=== PATIENT | male | born 1970 | race Caucasian/White ===

== ENCOUNTER 2017-01-29 09:03 | Inpatient (IN) | payer OTHER ==
[2017-01-29 09:14] VITALS: BMI 35.9
--- NOTE | 2017-01-29 10:00 | HP ---
CIWA Score - CIWA Score Nausea/Vomitin-Mild Nausea/No Vomiting Muscle Tremors: 4-Moderate,w/Arms Extend Anxiety: 4-Mod. Anxious/Guarded Agitation: 1-Slight > Activity Paroxysmal Sweats: No Perspiration Orientation: 0-Oriented Tacttile Disturbances: 1-Very Mild Itch/Numbness Auditory Disturbances: 1-Very Mild Visual Disturbances: 1-Very Mild Sensitivity Headache: 2-Mild CIWA-Ar Total Score: 15 Admission ROS S - HPI Chief Complaint: I had no choice - I was sent here by Allergies/Adverse Reactions: Allergies Allergy/AdvReac Type Severity Reaction Status Date / Time latex Allergy Mild Rash Verified 01/29/17 10:11 History of Present Illness: 46 yo gentleman here for detox from alcohol - previously in detox and rehab, history of black outs, no seizures. States he is a graduate of [employer], worked and earned alot of money but drinking became out of control 'that's why they call it a disease'. He is sent here today from [facility] where he was brought by police because of intoxication. Exam Limitations: Clinical Condition - Ebola screening Have you traveled outside of the country in the last 21 days: No Have you had contact with anyone from an Ebola affected area: No Have you been sick,other than usual withdrawal symptoms: No Do you have a fever: No - Review of Systems Constitutional: Loss of Appetite, Malaise, Changes in sleep, Weakness EENT: reports: Blurred Vision Respiratory: reports: No Symptoms reported Cardiac: reports: No Symptoms Reported GI: reports: Nausea, Poor Appetite : reports: Frequency Musculoskeletal: reports: No Symptoms Reported Integumentary: reports: Rash (facial ("I need to wash my face"), left arm ("I pick at it") Neuro: reports: Headache Endocrine: reports: No Symptoms Reported Hematology: reports: No Symptoms Reported Psychiatric: reports: Judgement Intact, Mood/Affect Appropiate, Orientated x3, Anxious Other Systems: Reviewed and Negative Patient History - Patient Medical History Hx Anemia: Yes Hx Asthma: No Hx Chronic Obstructive Pulmonary Disease (COPD): No Hx Cancer: No Hx Cardiac Disorders: No Hx Hypertension: No Hx Hypercholesterolemia: No Hx Pacemaker: No HX Cerebrovascular Accident: No Hx Seizures: No Hx Dementia: No Hx Diabetes: No Hx Gastrointestinal Disorders: No Hx Liver Disease: Yes (early cirrhosis) Hx Genitourinary Disorders: No Hx Sexually Transmitted Disorders: No Hx Renal Disease (ESRD): No Hx Thyroid Disease: No Hx Hepatitis C: Yes (ab + viral load negative) Hx Depression: Yes (? anxiety ) Hx Suicide Attempt: No Hx Bipolar Disorder: No Hx Schizophrenia: No - Patient Surgical History Past Surgical History: Yes Hx Neurologic Surgery: No Hx Cataract Extraction: No Hx Cardiac Surgery: No Hx Lung Surgery: No Hx Breast Surgery: No Hx Breast Biopsy: No Hx Abdominal Surgery: No Hx Appendectomy: No Hx Cholecystectomy: Yes Hx Genitourinary Surgery: No Hx Section: No Hx Orthopedic Surgery: No Hx Hysterectomy: No - PPD History Previous Implant?: Yes Documented Results: Negative w/o proof PPD to be Administered?: Yes - Reproductive History Patient is a Female of Child Bearing Age (11 -55 yrs old): No (male) - Smoking Cessation Smoking history: Never smoked Have you smoked in the past 12 months: No Initiated information on smoking cessation: No - Substance & Tx. History Hx Alcohol Use: Yes Hx Substance Use: No Substance Use Type: Alcohol Hx Substance Use Treatment: Yes (detox, rehab) - Substances Abused Alcohol Route: Oral Frequency: Daily Amount used: one case 24 oz beer Age of first use: 15 Date of Last Use: 01/28/17 Family Disease History - Family Disease History Family Disease History: Diabetes: Mother (living, etoh), Heart Disease: Mother, Other: Father ( MVA, etoh, pancreatitis), Mother, Brother, Sister Admission Physical Exam BHS - Vital Signs Vital Signs: Vital Signs - 24 hr 01/29/17 09:06 Temperature 98.7 F Pulse Rate 83 Respiratory 18 Rate Blood Pressure 160/90 - Physical General Appearance: Yes: Nourished, Appropriately Dressed, Disheveled, Mild Distress, Obese, Anxious HEENTM: Yes: Hearing grossly Normal, Normal ENT Inspection, Normocephalic, Normal Voice, Pharynx Normal Respiratory: Yes: Normal Breath Sounds, No Respiratory Distress Neck: Yes: No masses,lesions,Nodules, Supple Breast: Yes: Breast Exam Deferred, Other (gynecomastia) Cardiology: Yes: Regular Rhythm, Regular Rate Abdominal: Yes: Soft, Protuberent Genitourinary: Yes: Frequency Back: Yes: Decreased Range of Motion Musculoskeletal: Yes: full range of Motion, Gait Steady Extremities: Yes: Normal Inspection, Normal Range of Motion, Non-Tender Neurological: Yes: Fully Oriented, Alert, Normal Mood/Affect, Normal Response Integumentary: Yes: Dry, Rash (facial rash - crusty, erythematous over nasolabial folds; left arm rash - states ? allergy to latex tourniquet) Lymphatic: Yes: Within Normal Limits - Diagnostic (1) EtOH dependence Current Visit: Yes Status: Acute Qualifiers: Substance use status: uncomplicated Qualified Code(s): F10.20 - Alcohol dependence, uncomplicated (2) Seborrhea Current Visit: Yes Status: Chronic Comment: facial (3) Allergic reaction Current Visit: Yes Status: Chronic Qualifiers: Encounter type: initial encounter Qualified Code(s): T78.40XA - Allergy, unspecified, initial encounter Comment: left arm, states from tourniquet two weeks ago when in [place] ED Cleared for Admission [facility] - Detox or Rehab [facility] Level of Care: Medically Managed Detox Regimen/Protocol: Librium [facility] Breath Alcohol Content Breath Alcohol Content: 0.171 Urine Drug Screen - Results Drug Screen Negative: No Urine Drug Screen Results: BZO-Benzodiazepines
[2017-01-29] MEDS ORDERED: guaiFENesin/D-METHORPHAN HB 10 ML UNIT-DOSE CUPS PO PRN (10:23)
[2017-01-29] MEDS ORDERED: MAG HYDROX/AL HYDROX/SIMETH 30 ML UNIT-DOSE CUP PO PRN (10:23)
[2017-01-29] MEDS ORDERED: LOPERAMIDE HCL 2 MG CAPSULE PO PRN (10:23)
[2017-01-29] MEDS ORDERED: ACETAMINOPHEN 325 MG TABLET (FP) PO PRN (10:23)
[2017-01-29] MEDS ORDERED: MENTHOL/PHENOL 1 EACH UD MM PRN (10:23)
[2017-01-29] MEDS ORDERED: IBUPROFEN 400 MG TABLET (FP) PO PRN (10:23)
[2017-01-29] MEDS ORDERED: MAGNESIUM HYDROX 2400MG/30ML ORAL SUSPENSION 30 ML CUP PO PRN (10:23)
[2017-01-29] MEDS ORDERED: MAGNESIUM CITRATE 300 ML BOTTLE PO PRN (10:23)
[2017-01-29] MEDS ORDERED: hydrOXYzine PAMOATE 50 MG CAPSULE (FP) PO PRN (10:23)
[2017-01-29] MEDS ORDERED: P-EPHED 60MG/TRIPROLIDI 2.5MG TABLET PO PRN (10:23)
[2017-01-29] MEDS ORDERED: HYDROCORTISONE 1% TOPICAL OINT 30 GM TUBE TP PRN (10:25)
[2017-01-29] MEDS ORDERED: chlordiazePOXIDE HCL 25 MG CAPSULE PO PRN (10:34)
[2017-01-29] MEDS ORDERED: chlordiazePOXIDE HCL 25 MG CAPSULE PO ONE (10:45)
[2017-01-29] MEDS: GABAPENTIN 300 MG CAPSULE (FP) PO SCH ×2 (11:43→22:46)
[2017-01-29] MEDS: KETOCONAZOLE 2% CREAM - 60GM TUBE TP SCH (15:11)
[2017-01-29] MEDS: chlordiazePOXIDE HCL 25 MG CAPSULE PO SCH ×2 (17:21→22:47)
--- NOTE | 2017-01-29 17:49 | CONSULT ---
[facility] Psychiatric Consult - Data Date of interview: 01/29/17 Admission source: [facility] Identifying data: First admission to [facility] for this 46 y/o male seeking detox treatment on for alcohol dependence.Patient is highly educated (graduate from [employer]),single without children,homeless,unemployed and deprived of any source of income. Substance Abuse History: Confirmed by the patient in this interview. - Smoking Cessation. Smoking history: Never smoked. Have you smoked in the past 12 months: No. Initiated information on smoking cessation: No. - Substance & Tx. History. Hx Alcohol Use: Yes. Hx Substance Use: No. Substance Use Type: Alcohol. Hx Substance Use Treatment: Yes (detox, rehab). - Substances Abused. Alcohol. Route: Oral. Frequency: Daily. Amount used: one case 24 oz beer. Age of first use: 15. Date of Last Use: 01/28/17 Medical History: Anemia,hepatitis and cirrhosis of the liver. Psychiatric History: Patient denies history of psychiatric hospitalizations.He indicates,however,that he gets psychiatric outpatient services at [facility] in [place].Diagnosed with Anxiety Disorder.Maintained on risperdal 2 mg/hs + gabapentin 600 mg po tid.No reported history of suicide attempts. Physical/Sexual Abuse/Trauma History: Patient denies history of abuse. Additional Comment: Urine Drug Screen Results: BZO-Benzodiazepines.Noted. Mental Status Exam - Mental Status Exam Alert and Oriented to: Time, Place, Person Cognitive Function: Good Patient Appearance: Unkempt, Disheveled (obese) Mood: Nervous, Apprehensive Affect: Mood Congruent Patient Behavior: Fatigued, Appropriate, Cooperative Speech Pattern: Clear Voice Loudness: Normal Thought Process: Intact, Goal Oriented Thought Disorder: Not Present Hallucinations: Denies Suicidal Ideation: Denies Homicidal Ideation: Denies Insight/Judgement: Poor Sleep: Poorly, Difficulty falling asleep Appetite: Good Muscle strength/Tone: Normal Gait/Station: Normal Psychiatric Findings - Problem List ([place] 1, 2,3) (1) EtOH dependence Current Visit: Yes Status: Acute Qualifiers: Substance use status: uncomplicated Qualified Code(s): F10.20 - Alcohol dependence, uncomplicated (2) Alcohol-induced mood disorder Current Visit: Yes Status: Acute (3) Seborrhea Current Visit: Yes Status: Chronic Comment: facial (4) Insomnia Current Visit: Yes Status: Acute - Initial Treatment Plan Initial Treatment Plan: Psychoeducation.Detoxification.Meications : gabapentin 600 mg po tid + ambien 10 mg po hs prn.Side effects/benefits discussed with patient.He is in agreement with this careplan.Pharmacy claims are reviewed : no evidence of risperdal.Observation.
[2017-01-29 18:49] LABS: URINE APPEARANCE CLEAR; URINE BILIRUBIN NEGATIVE (NEGATIVE); URINE BLOOD NEGATIVE (NEGATIVE); URINE COLOR YELLOW; URINE GLUCOSE (UA) NEGATIVE (NEGATIVE); URINE KETONE NEGATIVE (NEGATIVE); URINE LEUK ESTERASE NEGATIVE (NEGATIVE); URINE NITRITE NEGATIVE (NEGATIVE); URINE PROTEIN NEGATIVE (NEGATIVE); URINE UROBILINOGEN NEGATIVE mg/dL (0.2-1.0)
[2017-01-29] MEDS ORDERED: diphenhydrAMINE HCL 50 MG CAPSULE PO PRN (22:00)
[2017-01-29] MEDS: THIAMINE HCL 100 MG TABLET (FP) PO SCH (22:46)
[2017-01-30] MEDS: GABAPENTIN 300 MG CAPSULE (FP) PO SCH ×3 (02:30→22:43)
[2017-01-30] MEDS: chlordiazePOXIDE HCL 25 MG CAPSULE PO SCH ×4 (05:57→22:44)
[2017-01-30] MEDS ORDERED: GABAPENTIN 300 MG CAPSULE (FP) PO ONE (07:17)
--- NOTE | 2017-01-30 07:33 | PN ---
[place] Progress Note Note: patient is taking neurontin 600mgs po tid seen by dr Man psychiatrist, neurontin 600 mg po given now, please inform psyhiatrist to continue order for neurontin 600 mg po tid
[2017-01-30 10:01] LABS: MCH 30.2 pg (25.7-33.7); MCHC 33.9 g/dl (32.0-35.9); MEAN CELL VOLUME 89.3 fl (80-96); MEAN PLT VOLUME 8.5 fl (7.5-11.1); PLATELET COUNT 117 K/MM3 (134-434); RDW 17.8 % (11.9-15.9); WHITE BLOOD COUNT 3.1 K/mm3 (4.0-10.0)
[2017-01-30 10:08] LABS: ALBUMIN 3.1 g/dl (3.4-5.0); ANION GAP 8 (8-16); BILIRUBIN,TOTAL 1.4 mg/dL (0.2-1.0); CALCIUM 7.7 mg/dL (8.5-10.1); CO2 26 mmol/L (21-32); CREATININE 0.6 mg/dL (0.7-1.3); GLUCOSE,RANDOM 140 mg/dL (74-106); SGOT/AST 68 U/L (15-37); SGPT/ALT 52 U/L (12-78); TOT PROT 7.1 g/dl (6.4-8.2)
[2017-01-30 10:09] LABS: ALK PHOS 169 U/L (45-117)
[2017-01-30] MEDS: PRENATAL VITAMINS W/ FOLIC ACID TABLET (FP) PO SCH (10:33)
[2017-01-30] MEDS: KETOCONAZOLE 2% CREAM - 60GM TUBE TP SCH (10:34)
[2017-01-30] MEDS ORDERED: GABAPENTIN 300 MG CAPSULE (FP) PO SCH (14:00)
[2017-01-30] MEDS ORDERED: TRIMETHOBENZAMIDE HCL 200MG/2ML INJ IM ONE (14:32)
[2017-01-30] MEDS ORDERED: TRIMETHOBENZAMIDE HCL 200MG/2ML INJ IM PRN (14:33)
[2017-01-30] MEDS ORDERED: ONDANSETRON *ODT* 4 MG TABLET SL ONE (14:34)
[2017-01-30] MEDS ORDERED: IBUPROFEN 400 MG TABLET (FP) PO PRN (14:38)
[2017-01-30] MEDS ORDERED: IBUPROFEN 400 MG TABLET (FP) PO ONE (14:39)
--- NOTE | 2017-01-30 15:00 | PN ---
[facility] CIWA - CIWA Score Nausea/Vomitin Muscle Tremors: 4-Moderate,w/Arms Extend Anxiety: 4-Mod. Anxious/Guarded Agitation: 4-Moderately Restless Paroxysmal Sweats: No Perspiration Orientation: 0-Oriented Tacttile Disturbances: 1-Very Mild Itch/Numbness Auditory Disturbances: 0-None Visual Disturbances: 0-None Headache: 1-Very Mild CIWA-Ar Total Score: 19 S Progress Note (SOAP) Subjective: Tremor, chills, sweating, headache, interrupted sleep, N/V (vomited x 2 this morning after breakfast (refused to have regular diet changed to clear liquids despite insurance underwriter's recommendation), abdominal pain (6-7/10 pain scale) started last night with same pain scale and persistent, patient reports h/o pancreatitis and was admitted to [facility] 3 months ago for it in which he received morphine IV and IVF; patient reports h/o leukopenia and anemia of chronic disease Objective: 01/30/17 14:57 Last Vital Signs Temp Pulse Resp BP Pulse Ox 96.7 F L 68 18 121/72 01/30/17 14:19 01/30/17 14:19 01/30/17 14:19 01/30/17 14:19 PE: Resp: lungs ctab/l, no added breath sounds CV: rrr, s1s2+ Abd: softly obese, + epigastric tenderness on palpation (mild), nd, +bs x 4 quadrants Skin: warm to touch, turgor good Laboratory Tests 01/29/17 01/30/17 01/30/17 13:26 06:05 06:05 WBC 3.1 L RBC 3.35 L Hgb 10.1 L Hct 29.9 L MCV 89.3 MCH 30.2 MCHC 33.9 RDW 17.8 H Plt Count 117 L MPV 8.5 Sodium 144 Potassium 3.8 Chloride 110 H Carbon Dioxide 26 Anion Gap 8 BUN 7 Creatinine 0.6 L Creat Clearance w eGFR > 60 Random Glucose 140 H Calcium 7.7 L Total Bilirubin 1.4 H AST 68 H ALT 52 Alkaline Phosphatase 169 H Total Protein 7.1 Albumin 3.1 L Urine Color Yellow Urine Appearance Clear Urine pH 5.0 Ur Specific [place] 1.015 Urine Protein Negative Urine Glucose (UA) Negative Urine Ketones Negative Urine Blood Negative Urine Nitrite Negative Urine Bilirubin Negative Urine Urobilinogen Negative Ur Leukocyte Esterase Negative RPR Titer 01/30/17 06:05 WBC RBC Hgb Hct MCV MCH MCHC RDW Plt Count MPV Sodium Potassium Chloride Carbon Dioxide Anion Gap BUN Creatinine Creat Clearance w eGFR Random Glucose Calcium Total Bilirubin AST ALT Alkaline Phosphatase Total Protein Albumin Urine Color Urine Appearance Urine pH Ur Specific [place] Urine Protein Urine Glucose (UA) Urine Ketones Urine Blood Urine Nitrite Urine Bilirubin Urine Urobilinogen Ur Leukocyte Esterase RPR Titer Nonreactive Labs noted Assessment: 01/30/17 15:00 Withdrawal symptoms N/V Plan: Continue detox N/V/Abdominal pain: tigan 200mg IM x 1 then q8hr prn, zofran 4mg SL x 1 then q8hr prn, gingerale 1 can PO bid, encouraged to drink more water (water pitcher ordered), recommends clear liquid diet but patient refused; send amylase, lipase , cbc, bmp in AM. Motrin increased to 800mg PO q8hr prn severe pain (first dose now). Consider transferring to ER if significant elevation in amylase/lipase and worsening of abdominal pain and vomiting to rule out acute pancreatitis.
[2017-01-30] MEDS ORDERED: ONDANSETRON *ODT* 4 MG TABLET SL PRN (22:00)
--- NOTE | 2017-01-30 22:19 | EKG ---
Test Reason : Blood Pressure : / mmHG Vent. Rate : 085 BPM Atrial Rate : 085 BPM P-R Int : 170 ms QRS Dur : 114 ms QT Int : 392 ms P-R-T Axes : 053 -02 047 degrees QTc Int : 466 ms NORMAL SINUS RHYTHM NON-SPECIFIC INTRA-VENTRICULAR CONDUCTION DELAY NO PREVIOUS ECGS AVAILABLE Confirmed by DEONDRE DIXON, TENZIN ([id number]) on 01/30/2017 10:18:49 PM Referred By: Confirmed By:TENZIN MENDOSA MD
[2017-01-30] MEDS: THIAMINE HCL 100 MG TABLET (FP) PO SCH (22:43)
[2017-01-31] MEDS: chlordiazePOXIDE HCL 25 MG CAPSULE PO SCH ×2 (05:42→11:09)
[2017-01-31] MEDS: GABAPENTIN 300 MG CAPSULE (FP) PO SCH ×2 (05:42→14:30)
--- NOTE | 2017-01-31 09:16 | PN ---
S CIWA - CIWA Score Nausea/Vomitin Muscle Tremors: 4-Moderate,w/Arms Extend Anxiety: 4-Mod. Anxious/Guarded Agitation: 4-Moderately Restless Paroxysmal Sweats: 3 Orientation: 0-Oriented Tacttile Disturbances: 1-Very Mild Itch/Numbness Auditory Disturbances: 0-None Visual Disturbances: 0-None Headache: 1-Very Mild CIWA-Ar Total Score: 22 BHS Progress Note (SOAP) Subjective: nausea, sweats, interrupted sleep, axiety, tremors, central abdo pain which feels like pancreatitis whichhe has had in the past, unable to take tylenol all other medications reportedly ineffective Objective: 01/31/17 09:14 Vital Signs - 24 hr 01/30/17 01/30/17 01/30/17 09:33 14:19 18:34 Temperature 97.0 F L 96.7 F L 97.0 F L Pulse Rate 84 68 66 Respiratory 18 18 18 Rate Blood Pressure 138/74 121/72 108/61 01/30/17 01/31/17 01/31/17 22:25 00:30 04:29 Temperature 98.4 F Pulse Rate 81 Respiratory 16 18 18 Rate Blood Pressure 106/61 01/31/17 06:16 Temperature 96.4 F L Pulse Rate 64 Respiratory 16 Rate Blood Pressure 116/73 Laboratory Tests 01/29/17 01/30/17 01/30/17 13:26 06:05 06:05 WBC 3.1 L RBC 3.35 L Hgb 10.1 L Hct 29.9 L MCV 89.3 MCH 30.2 MCHC 33.9 RDW 17.8 H Plt Count 117 L MPV 8.5 Sodium 144 Potassium 3.8 Chloride 110 H Carbon Dioxide 26 Anion Gap 8 BUN 7 Creatinine 0.6 L Creat Clearance w eGFR > 60 Random Glucose 140 H Calcium 7.7 L Total Bilirubin 1.4 H AST 68 H ALT 52 Alkaline Phosphatase 169 H Total Protein 7.1 Albumin 3.1 L Urine Color Yellow Urine Appearance Clear Urine pH 5.0 Ur Specific [place] 1.015 Urine Protein Negative Urine Glucose (UA) Negative Urine Ketones Negative Urine Blood Negative Urine Nitrite Negative Urine Bilirubin Negative Urine Urobilinogen Negative Ur Leukocyte Esterase Negative RPR Titer 01/30/17 06:05 WBC RBC Hgb Hct MCV MCH MCHC RDW Plt Count MPV Sodium Potassium Chloride Carbon Dioxide Anion Gap BUN Creatinine Creat Clearance w eGFR Random Glucose Calcium Total Bilirubin AST ALT Alkaline Phosphatase Total Protein Albumin Urine Color Urine Appearance Urine pH Ur Specific [place] Urine Protein Urine Glucose (UA) Urine Ketones Urine Blood Urine Nitrite Urine Bilirubin Urine Urobilinogen Ur Leukocyte Esterase RPR Titer Nonreactive pancytopenia, hypoalbuminemia, elevated lfts, elevated glucose Assessment: 01/31/17 09:14 withdrawal sx, abdo pain, malnutiriton/liverdisease noted, elevated glucose Plan: cont detox, libirum prns , order amylase/lipase to r/o pancreatitis, repeat labs , fluids, d/c meeta mahamed, diabetic dies ordered.
[2017-01-31 10:05] LABS: MCH 30.1 pg (25.7-33.7); MCHC 33.3 g/dl (32.0-35.9); MEAN CELL VOLUME 90.4 fl (80-96); MEAN PLT VOLUME 7.7 fl (7.5-11.1); PLATELET COUNT 70 K/MM3 (134-434); RDW 17.7 % (11.9-15.9)
[2017-01-31 10:17] LABS: AMYLASE 69 U/L (25-115); ANION GAP 6 (8-16); CALCIUM 8.4 mg/dL (8.5-10.1); CO2 28 mmol/L (21-32); CREATININE 0.6 mg/dL (0.7-1.3); GLUCOSE,RANDOM 114 mg/dL (74-106)
[2017-01-31 10:20] LABS: WHITE BLOOD COUNT 1.5 K/mm3 (4.0-10.0)
--- NOTE | 2017-01-31 10:30 | PN ---
S Progress Note Note: lipase elevated, abdo pain worse, pancytopenia, WBC 1.5 will send to ED for evaluation and clearance prior to completing discharge.. Ed notified.
[2017-01-31 10:44] LABS: PLATELET ESTIMATE DECREASED (NORMAL); TOTAL CELLS COUNTED 100
[2017-01-31] MEDS: PRENATAL VITAMINS W/ FOLIC ACID TABLET (FP) PO SCH (11:09)
[2017-01-31] MEDS: KETOCONAZOLE 2% CREAM - 60GM TUBE TP SCH (11:11)
[2017-01-31 11:52] VITALS: BP 104/58; PULSE 58; TEMP 98.3
[2017-01-31] MEDS ORDERED: chlordiazePOXIDE 5 MG CAPSULE PO SCH (17:00)
[2017-02-01] MEDS ORDERED: chlordiazePOXIDE HCL 10 MG CAPSULE PO SCH (17:00)
== END 2017-01-31 18:53 | disposition short-term general hospital (02) | DRG 775 ==
LOC: YASAS 09:03 → Y3N 10:28
PROVIDERS: ADMIT Internal Medicine Addiction Medicine; ATTEND Internal Medicine Addiction Medicine
PROC: HZ2ZZZZ Detoxification Services for Substance Abuse Treatment (ICD-10-PCS; principal; 2017-01-29)
DX: F10.230 Alcohol dependence with withdrawal, uncomplicated (principal); F10.24 Alcohol dependence with alcohol-induced mood disorder; L21.9 Seborrheic dermatitis, unspecified; G47.00 Insomnia, unspecified; E46 Unspecified protein-calorie malnutrition; Z68.35 Body mass index [BMI] 35.0-35.9, adult; R10.9 Unspecified abdominal pain; D61.818 Other pancytopenia; R94.5 Abnormal results of liver function studies; E88.09 Other disorders of plasma-protein metabolism, not elsewhere classified; R73.9 Hyperglycemia, unspecified; E66.9 Obesity, unspecified; K74.60 Unspecified cirrhosis of liver; D64.9 Anemia, unspecified; B18.2 Chronic viral hepatitis C; T78.40XD Allergy, unspecified, subsequent encounter; X58.XXXD Exposure to other specified factors, subsequent encounter
CPT/HCPCS: 36415; 80048; 80053; 81003; 82150; 83690; 85025; 85027; 86593; 93005; 93010

== ENCOUNTER 2017-01-31 12:07 | Inpatient (IN) | payer OTHER ==
[2017-01-31 12:16] VITALS: BMI 37.3
--- NOTE | 2017-01-31 12:59 | PDOC ---
Attending Attestation - Resident Resident Name: ElizabethAlexandre - ED Attending Attestation I have performed the following: I have examined & evaluated the patient, The case was reviewed & discussed with the resident, I agree w/resident's findings & plan, Exceptions are as noted - HPI HPI: 01/31/17 16:34 46 M with h/o ETOH abuse, recurrent pancreatitis presents to ER with epigastric pain x 1 day. Pt was detoxing at [facility] for ETOH when he developed severe epigastric pain and vomiting. Pt states that the pain felt the same as his previous episodes of pancreatitis. He denies F/C. Denies diarrhea/constipation. Pt reports multiple episodes of nonbloody vomitus. Pt last drank 3 days ago, was being treated for withdrawal at [facility]. Denies any sensation of withdrawal at this time. - Physicial Exam PE: 01/31/17 16:36 "GENERAL: Awake, alert, and fully oriented, in no acute distress HEAD: No signs of trauma EYES: PERRLA, EOMI, sclera anicteric, conjunctiva clear ENT: Auricles normal inspection, hearing grossly normal, nares patent, oropharynx clear without exudates. Moist mucosa NECK: Normal ROM, supple, no lymphadenopathy, JVD, or masses LUNGS: Breath sounds equal, clear to auscultation bilaterally. No wheezes, and no crackles HEART: Regular rate and rhythm, normal S1 and S2, no murmurs, rubs or gallops ABDOMEN: Soft, + epigastric TTP, normoactive bowel sounds. No guarding, no rebound. No masses EXTREMITIES: Normal range of motion, no edema. No clubbing or cyanosis. No cords, erythema, or tenderness NEUROLOGICAL: Cranial nerves II through XII grossly intact. Normal speech, normal gait SKIN: Warm, Dry, normal turgor, no rashes or lesions noted. " - Medical Decision Making 01/31/17 16:37 46 M with epigastric pain + vomiting, concerning for acute pancreatitis vs gastritis. - Labs, lipase - IVF, analgesia 01/31/17 16:37 CBC,CMP WBC 2.2 K/mm3 (4.0-10.0) L D 01/31/17 13:35 RBC 3.28 M/mm3 (4.00-5.60) L 01/31/17 13:35 Hgb 10.0 GM/dL (11.7-16.9) L 01/31/17 13:35 Hct 29.4 % (35.4-49) L 01/31/17 13:35 MCV 89.7 fl (80-96) 01/31/17 13:35 MCH 30.4 pg (25.7-33.7) 01/31/17 13:35 MCHC 33.9 g/dl (32.0-35.9) 01/31/17 13:35 RDW 17.7 % (11.9-15.9) H 01/31/17 13:35 Plt Count 79 K/MM3 (134-434) L 01/31/17 13:35 MPV 7.0 fl (7.5-11.1) L 01/31/17 13:35 Neutrophils % 56.7 % (42.8-82.8) 01/31/17 13:35 Lymphocytes % 25.9 % (8-40) 01/31/17 13:35 Monocytes % 12.0 % (3.8-10.2) H 01/31/17 13:35 Eosinophils % 4.0 % (0-4.5) 01/31/17 13:35 Basophils % 1.4 % (0-2.0) 01/31/17 13:35 Sodium 140 mmol/L (136-145) 01/31/17 13:35 Potassium 4.3 mmol/L (3.5-5.1) 01/31/17 13:35 Chloride 105 mmol/L (98-107) 01/31/17 13:35 Carbon Dioxide 30 mmol/L (21-32) 01/31/17 13:35 Anion Gap 5 (8-16) L 01/31/17 13:35 BUN 13 mg/dL (7-18) 01/31/17 13:35 Creatinine 0.5 mg/dL (0.7-1.3) L 01/31/17 13:35 Creat Clearance w eGFR > 60 (>60) 01/31/17 13:35 Random Glucose 90 mg/dL (74-106) D 01/31/17 13:35 Calcium 8.8 mg/dL (8.5-10.1) 01/31/17 13:35 Total Bilirubin 0.8 mg/dL (0.2-1.0) D 01/31/17 13:35 AST 55 U/L (15-37) H 01/31/17 13:35 ALT 39 U/L (12-78) D 01/31/17 13:35 Alkaline Phosphatase 161 U/L (45-117) H 01/31/17 13:35 LD Total 221 U/L (87-241) 01/31/17 13:14 Total Protein 7.0 g/dl (6.4-8.2) 01/31/17 13:35 Albumin 3.0 g/dl (3.4-5.0) L 01/31/17 13:35 Lipase 576 U/L (73-393) H 01/31/17 13:14 Labs notable for lipase in 500s. Pt with likely acute pancreatitis. Will keep NPO and admit to hospitalist.
[2017-01-31] MEDS ORDERED: ONDANSETRON 4 MG/2 ML VIAL IVPUSH ONE (13:05)
[2017-01-31] MEDS ORDERED: morphine CARPU-JECT 4 MG/1 ML DISP.SYRIN IVPUSH ONE ×2 (13:05→15:40)
[2017-01-31] MEDS ORDERED: SODIUM CHLORIDE 1,000 ML IV STA (13:05)
--- NOTE | 2017-01-31 13:06 | PDOC ---
History of Present Illness - General Chief Complaint: Pain, Acute Stated Complaint: ABD PAIN Time Seen by Provider: 01/31/17 12:11 - History of Present Illness Initial Comments: 01/31/17 16:33 Patient is a 46 year old male with a history of pancreatitis, alcoholism who presents with abdominal pain. The patient reports a 2 days history of epigastric abdominal pain. He presents from [facility] for which he was admitted 2 days ago for treatment of alcoholism. The patient reports worsening sharp 8/10 epigastric abdominal pain with radiation to his back similar to his previous presentation of pancreatitis. He reports that he had a cholecystectomy due to pancreatitis in the past as well. He had lab work done at [facility] today demonstrating concerns for pancreatitis prompting his presentation to the ER today. He does endorse some nausea and 2 episodes of vomiting. He denies fevers, chills, SOB, chest pain, or changes with bowel movements or urination. Past History - Past Medical History Allergies/Adverse Reactions: Allergies Allergy/AdvReac Type Severity Reaction Status Date / Time latex Allergy Mild Rash Verified 01/29/17 10:11 Home Medications: Ambulatory Orders Gabapentin [Neurontin] 600 mg PO TID 01/31/17 Anemia: Yes Asthma: No Cancer: No Cardiac Disorders: No CVA: No COPD: No Dementia: No Diabetes: No GI Disorders: No Disorders: No HTN: No Hypercholesterolemia: No Kidney Stones: No Liver Disease: Yes (early cirrhosis) Suicide Attempt (Hx): No Seizures: No Thyroid Disease: No - Surgical History Abdominal Surgery: No Appendectomy: No Cardiac Surgery: No Cholecystectomy: Yes Lung Surgery: No Neurologic Surgery: No Orthopedic Surgery: No - Reproductive History Testicular Surgery: No - Psycho/Social/Smoking Cessation Hx Anxiety: No Suicidal Ideation: No Smoking History: Never smoked Have you smoked in the past 12 months: No Information on smoking cessation initiated: No Hx Alcohol Use: Yes Drug/Substance Use Hx: No Substance Use Type: Alcohol Hx Substance Use Treatment: Yes (detox, rehab) Review of Systems - Review of Systems Constitutional: No: Chills, Fever Respiratory: No: Cough, Shortness of Breath Cardiac (ROS): No: Chest Pain, Lightheadedness, Palpitations ABD/GI: Yes: Nausea, Vomiting. No: Constipated, Diarrhea, Tarry Stools : No: Burning, Dysuria Integumentary: No: Rash Neurological: No: Headache, Numbness, Tingling, Weakness *Physical Exam - Vital Signs Last Vital Signs Temp Pulse Resp BP Pulse Ox 98.2 F 65 20 111/59 100 01/31/17 12:09 01/31/17 12:09 01/31/17 12:09 01/31/17 12:09 01/31/17 12:09 - Physical Exam Comments: 01/31/17 16:57 General Appearance: Nourished. No Apparent Distress HEENT: No Pharyngeal Erythema, Tonsillar Exudate, Tonsillar Erythema Respiratory/Chest: Lungs Clear, Normal Breath Sounds. No Crackles, Rales, Rhonchi, Wheezing Cardiovascular: Regular Rhythm, Regular Rate. No Murmur, Gallop/S3, Gallop/S4 Gastrointestinal/Abdominal: Normal Bowel Sounds, Soft, Mild epigastric tenderness to palpation. No Guarding, Rebound Extremity: Normal Capillary Refill Integumentary: Normal Color, Dry, Warm Neurologic: Fully Oriented, Alert, Normal Mood/Affect, Normal Response ED Treatment Course - LABORATORY CBC & Chemistry Diagram: 01/31/17 13:35 01/31/17 13:35 - RADIOLOGY Radiology Studies Ordered: Category Date Time Status CHEST PA & LAT [RAD] Stat Radiology 01/31/17 13:05 Ordered Medical Decision Making - Medical Decision Making 01/31/17 16:58 Patient is a 46 year old male with a history of pancreatitis and alcoholism who presents with abdominal pain. Differential includes but is not limited to: Pancreatitis, Choledocolethiasis, Peptic ulcer, metabolic derangement. Given the patient's epigastric pain with radiation to his back as well as previous presentations due to pancreatitis, it is likely his pain is due to a recurrence of the patient's pancreatitis. The patient had a cholecystectomy making cholecytitis unlikely and it is unlikely his symptoms are due to choledocolethiasis due to his presentation. We will obtain a cbc, cmp, lipase, chest radiograph to evaluate. 01/31/17 17:24 Lipase is positive to 526 concerning for pancreatitis. CBC, cmp and chest radiograph are unremarkable. It is likely his symptoms are due to pancreatitis. We will call for admission for pancreatitis and treat with IV fluids and morphine for pain control. We discussed the results with the patient and plan and the patient is agreeable with the plan. 01/31/17 17:31 Discussed the case with Dr. Vigil who agreed to accept the patient for admission. *DC/Admit/Observation/Transfer Diagnosis at time of Disposition: Pancreatitis Qualifiers: Chronicity: acute Pancreatitis type: alcohol induced Acute pancreatitis complication: unspecified Qualified Code(s): K85.20 - Alcohol induced acute pancreatitis without necrosis or infection - Discharge Dispostion Condition at time of disposition: Guarded Admit: Yes
[2017-01-31] MEDS ORDERED: morphine CARPU-JECT 10 MG/1 ML DISP.SYRIN ONE ×2 (13:17→15:51)
[2017-01-31] MEDS ORDERED: ONDANSETRON 4 MG/2 ML VIAL ONE (13:18)
[2017-01-31 13:41] LABS: BASOPHIL 1.4 % (0-2.0); MCH 30.4 pg (25.7-33.7); MCHC 33.9 g/dl (32.0-35.9); MEAN CELL VOLUME 89.7 fl (80-96); NEUTROPHILS 56.7 % (42.8-82.8); PLATELET COUNT 79 K/MM3 (134-434); RDW 17.7 % (11.9-15.9); WHITE BLOOD COUNT 2.2 K/mm3 (4.0-10.0)
[2017-01-31 14:01] LABS: LDH 221 U/L (87-241)
[2017-01-31 14:04] LABS: ANION GAP 5 (8-16); CALCIUM 8.8 mg/dL (8.5-10.1); CO2 30 mmol/L (21-32); CREATININE 0.5 mg/dL (0.7-1.3); GLUCOSE,RANDOM 90 mg/dL (74-106); SGOT/AST 55 U/L (15-37); SGPT/ALT 39 U/L (12-78)
[2017-01-31 14:05] LABS: ALK PHOS 161 U/L (45-117); BILIRUBIN,TOTAL 0.8 mg/dL (0.2-1.0)
--- NOTE | 2017-01-31 19:49 | HP ---
Admitting History and Physical - Primary Care Physician PCP: Olena Vigil - Admission Chief Complaint: abdominal pain History of Present Illness: 46 M with h/o ETOH abuse, recurrent pancreatitis presents to ER with epigastric pain x 1 day. Pt was detoxing at [facility] for ETOH when he developed severe epigastric pain and vomiting. Pt states that the pain felt the same as his previous episodes of pancreatitis. He denies F/C. Denies diarrhea/constipation. Pt reports multiple episodes of nonbloody vomitus. Pt last drank 3 days ago, was being treated for withdrawal at [facility]. Denies any sensation of withdrawal at this time. - - Past Medical History Gastrointestinal: Yes: Pancreatitis - Smoking History Smoking history: Never smoked Have you smoked in the past 12 months: No - Alcohol/Substance Use Hx Alcohol Use: Yes Home Medications - Allergies Allergies/Adverse Reactions: Allergies Allergy/AdvReac Type Severity Reaction Status Date / Time latex Allergy Mild Rash Verified 01/29/17 10:11 - Home Medications Home Medications: Ambulatory Orders Gabapentin [Neurontin] 600 mg PO TID 01/31/17 Family Disease History - Family Disease History Family Disease History: Diabetes: Mother (living, etoh), Heart Disease: Mother, Other: Father ( MVA, etoh, pancreatitis), Mother, Brother, Sister Review of Systems - Review of Systems Gastrointestinal: reports: Abdominal Pain, Nausea Physical Examination Vital Signs: Vital Signs Temperature 97.6 F 01/31/17 18:46 Pulse Rate 68 01/31/17 18:46 Respiratory Rate 18 01/31/17 18:46 Blood Pressure 131/76 01/31/17 18:46 O2 Sat by Pulse Oximetry (%) 100 01/31/17 12:09 Constitutional: Yes: Calm HENT: Yes: Atraumatic Neck: Yes: Supple Cardiovascular: Yes: Regular Rate and Rhythm Respiratory: Yes: CTA Bilaterally Gastrointestinal: Yes: Normal Bowel Sounds, Tenderness (epigastric, mild) Extremities: Yes: WNL Neurological: Yes: Alert, Oriented Imaging - Results X-ray: Report Reviewed Problem List - Problems (1) EtOH dependence Assessment/Plan: pt was at [facility] will call dr marylu carlson Code(s): F10.20 - ALCOHOL DEPENDENCE, UNCOMPLICATED Qualifiers: (2) Pancreatitis Assessment/Plan: prn pain meds clear liquid diet fu labs in am gi consult ct abd and pelvis if needed Code(s): K85.90 - ACUTE PANCREATITIS WITHOUT NECROSIS OR INFECTION, UNSP Qualifiers: Chronicity: acute Pancreatitis type: alcohol induced Acute pancreatitis complication: unspecified Qualified Code(s): K85.20 - Alcohol induced acute pancreatitis without necrosis or infection Assessment/Plan Laboratory Tests 01/31/17 01/31/17 01/31/17 13:14 13:35 13:35 WBC 2.2 L D RBC 3.28 L Hgb 10.0 L Hct 29.4 L MCV 89.7 MCH 30.4 MCHC 33.9 RDW 17.7 H Plt Count 79 L MPV 7.0 L Neutrophils % 56.7 Lymphocytes % 25.9 Monocytes % 12.0 H Eosinophils % 4.0 Basophils % 1.4 Sodium 140 Potassium 4.3 Chloride 105 Carbon Dioxide 30 Anion Gap 5 L BUN 13 Creatinine 0.5 L Creat Clearance w eGFR > 60 Random Glucose 90 D Calcium 8.8 Total Bilirubin 0.8 D AST 55 H ALT 39 D Alkaline Phosphatase 161 H LD Total 221 Total Protein 7.0 Albumin 3.0 L Lipase 576 H
[2017-01-31] MEDS ORDERED: ONDANSETRON 4 MG/2 ML VIAL IVPB PRN (19:58)
[2017-01-31] MEDS: HYDROmorphone HCL CARPU-JECT 1 MG/1 ML DISP.SYRIN IVPB PRN (21:14)
[2017-01-31] MEDS ORDERED: chlordiazePOXIDE HCL 25 MG CAPSULE PO PRN (22:49)
[2017-01-31] MEDS: chlordiazePOXIDE 5 MG CAPSULE PO SCH (23:11)
[2017-02-01] MEDS: HYDROmorphone HCL CARPU-JECT 1 MG/1 ML DISP.SYRIN IVPB PRN (04:00)
[2017-02-01] MEDS: chlordiazePOXIDE 5 MG CAPSULE PO SCH ×2 (04:57→11:42)
[2017-02-01 09:03] LABS: AMYLASE 154 U/L (25-115)
--- NOTE | 2017-02-01 13:29 | CON.GI ---
Consult Consult Specialty:: GI Referred by:: Dr. Vigil Reason for Consultation:: Upper Abdominal pain - History of Present Illness Chief Complaint: I had abdominal pain History of Present Illness: 46M admitted through [facility] ER having been sent from [facility] for evaluation of abdominal pain. He abuses alcohol and actively abused alcohol up until his admission to [facility]. He explains that he had an upper abdominal discomfort from when he got to [facility] but that it became progressively worse. He explains that "they did bloodwork there" and sent him to [facility] ER. The pain was non radiating. It reminded him of pain he experienced during an episode of pancreatitis. He alludes to be treated at [facility], was told that it was from his alcohol consumption / possibly related to gallstones, may have had a stone in his pancreatic duct or bile duct that was no longer there, and ultimately underwent cholecystectomy. He also alludes to being by Dr. Nuria Ross at [facility] for his liver and GI issues. He believes that he had an upper endoscopy a couple of weeks ago that was ok but CT scans performed at [facility] have shown varices. - History Source History Provided By: Patient Limitations to Obtaining History: No Limitations - Past Medical History Gastrointestinal: Yes: Pancreatitis Hepatobiliary: Yes: Cirrhosis (question of cirrhosis), Cholelithiasis (s/p cholecystectomy) Psych: Yes: Addictions (Alcohol abuse) - Past Surgical History Past Surgical History: Yes: Arthrosocopy (Left knee), Cholecystectomy - Alcohol/Substance Use Hx Alcohol Use: Yes - Smoking History Smoking history: Never smoked Have you smoked in the past 12 months: No - Social History Usual Living Arrangement: Alone Occupation: Disabled. States having graduated from [employer] and worked in [employer] of : [facility] History of Recent Travel: No Home Medications - Allergies Allergies/Adverse Reactions: Allergies Allergy/AdvReac Type Severity Reaction Status Date / Time latex Allergy Mild Rash Verified 01/29/17 10:11 - Home Medications Home Medications: Ambulatory Orders Gabapentin [Neurontin] 600 mg PO TID 01/31/17 Family Disease History - Family Disease History Family Disease History: Diabetes: Mother (living, etoh), Heart Disease: Mother, Other: Father ( MVA, etoh, pancreatitis), Mother, Brother (1, healthy), Sister (2, healthy) Other Family History: No children, no family history of colorectal cancer or other GI malignancy Review of Systems - Review of Systems Constitutional: denies: Lethargy Cardiovascular: denies: Chest Pain Respiratory: denies: Cough Gastrointestinal: reports: Abdominal Pain, Vomiting (vomited previously prior to admission to [facility]). denies: Constipation, Diarrhea, Melena Physical Exam-GI Vital Signs: Vital Signs Temperature 97.7 F 02/01/17 05:59 Pulse Rate 68 02/01/17 05:59 Respiratory Rate 18 02/01/17 05:59 Blood Pressure 125/68 02/01/17 05:59 O2 Sat by Pulse Oximetry (%) 99 01/31/17 20:21 Constitutional: Yes: Calm Eyes: No: Sclera Icterus Neck: Yes: Supple Cardiovascular: Yes: Regular Rate and Rhythm. No: Murmur Respiratory: Yes: CTA Bilaterally Gastrointestinal Inspection: No: Distention ...Auscultate: Yes: Normoactive Bowel Sounds ...Palpate: Yes: Tenderness (Mild TTP upper abdomen). No: Guarding, Hepatomegaly, Splenomegaly, Tenderness, Rebound ...Percussion: No: Tympanitic Edema: No (No LE edema) Problem List - Problems (1) Pancreatitis Assessment/Plan: Questionable pancreatitis. Enzymes not 3 x ULN and no imaging to confirm. ? if acute on chronic pancreatitis however really doesnt give a history of chronic abdominal pain as opposed to 1 previous episode of acute pancreatitis. Currently with very mild upper abdominal TTP Advise: Clear liquids MRI of abdomen with and without contrast / triple phase Follow-up with his Lead Infrastructure Architect/Switchboard Manager Dr. Nuria Ross at [facility]. He tells me that he sees her every 3-4 months and has an appointment with Her 03/14/17. Code(s): K85.90 - ACUTE PANCREATITIS WITHOUT NECROSIS OR INFECTION, UNSP Qualifiers: Chronicity: acute Pancreatitis type: alcohol induced Acute pancreatitis complication: unspecified Qualified Code(s): K85.20 - Alcohol induced acute pancreatitis without necrosis or infection
[2017-02-01 14:08] VITALS: BP 131/81; PULSE 70; TEMP 97.9
--- NOTE | 2017-02-01 14:31 | PN ---
Progress Note, Physician History of Present Illness: feeling better - Current Medication List Current Medications: Active Medications Chlordiazepoxide HCl (Librium -) 15 mg PO Q6H CHASE Stop: 02/01/17 22:59 Last Admin: 02/01/17 11:42 Dose: 15 mg Chlordiazepoxide HCl (Librium -) 10 mg PO Q6H CHASE Stop: 02/02/17 22:59 Chlordiazepoxide HCl (Librium -) 25 mg PO Q4H PRN Stop: 02/01/17 22:48 Hydromorphone HCl (Dilaudid Injection -) 1 mg IVPB Q3H PRN PRN Reason: PAIN Last Admin: 02/01/17 04:00 Dose: 1 mg Ondansetron HCl (Zofran Injection) 4 mg IVPB Q4H PRN PRN Reason: NAUSEA AND/OR VOMITING - Objective Vital Signs: Vital Signs Temperature 97.9 F 02/01/17 14:07 Pulse Rate 70 02/01/17 14:07 Respiratory Rate 18 02/01/17 05:59 Blood Pressure 131/81 02/01/17 14:07 O2 Sat by Pulse Oximetry (%) 99 01/31/17 20:21 Constitutional: Yes: No Distress HENT: Yes: Atraumatic Neck: Yes: Supple Cardiovascular: Yes: Regular Rate and Rhythm Respiratory: Yes: CTA Bilaterally Gastrointestinal: Yes: Normal Bowel Sounds Extremities: Yes: WNL Neurological: Yes: Alert, Oriented Problem List - Problems (1) EtOH dependence Assessment/Plan: pt was at [facility] will call dr marylu carlson on librium protocol now Code(s): F10.20 - ALCOHOL DEPENDENCE, UNCOMPLICATED Qualifiers: (2) Pancreatitis Assessment/Plan: prn pain meds clear liquid diet labs noted ct abd and pelvis today Code(s): K85.90 - ACUTE PANCREATITIS WITHOUT NECROSIS OR INFECTION, UNSP Qualifiers: Chronicity: acute Pancreatitis type: alcohol induced Acute pancreatitis complication: unspecified Qualified Code(s): K85.20 - Alcohol induced acute pancreatitis without necrosis or infection
--- NOTE | 2017-02-01 17:16 | DS ---
Physical Examination Vital Signs: Vital Signs Temperature 97.9 F 02/01/17 14:07 Pulse Rate 70 02/01/17 14:07 Respiratory Rate 18 02/01/17 05:59 Blood Pressure 131/81 02/01/17 14:07 O2 Sat by Pulse Oximetry (%) 99 01/31/17 20:21 Discharge Summary Reason For Visit: PANCREATITIS Condition: Guarded - Instructions Disposition: AGAINST MEDICAL ADVICE - Home Medications Comprehensive Discharge Medication List: Ambulatory Orders Gabapentin [Neurontin] 600 mg PO TID 01/31/17 PT REFUSED ALL THE TESTS AND SIGNED OUT AMA
--- NOTE | 2017-02-01 19:11 | PN ---
[facility] Progress Note Note: pt signed out AMA - unable to evaluate for detox consult .
[2017-02-01] MEDS ORDERED: chlordiazePOXIDE 5 MG CAPSULE PO SCH (23:00)
== END 2017-02-01 16:21 | disposition left against medical advice (07) | DRG 282 ==
LOC: JER 12:07 → JERBED 17:10 → J6S 19:15
PROVIDERS: ADMIT Internal Medicine; ATTEND Internal Medicine
DX: K85.20 Alcohol induced acute pancreatitis without necrosis or infection (principal); K86.1 Other chronic pancreatitis; D64.9 Anemia, unspecified; K70.30 Alcoholic cirrhosis of liver without ascites; F10.20 Alcohol dependence, uncomplicated; E66.8 Other obesity; Z68.37 Body mass index [BMI] 37.0-37.9, adult
CPT/HCPCS: 36415; 71020-TC; 80053; 82150; 83615; 83690; 85025; 99284-25

== ENCOUNTER 2018-02-27 09:54 | Inpatient (IN) | payer OTHER ==
[2018-02-27 10:22] VITALS: BMI 37.6
--- NOTE | 2018-02-27 11:04 | HP ---
CIWA Score - CIWA Score Nausea/Vomitin Muscle Tremors: 3 Anxiety: 3 Agitation: 2 Paroxysmal Sweats: 1-Minimal Palms Moist Orientation: 0-Oriented Tacttile Disturbances: 2-Mild Itch/Numbness/Burn Auditory Disturbances: 1-Very Mild Visual Disturbances: 1-Very Mild Sensitivity Headache: 2-Mild CIWA-Ar Total Score: 18 Admission ROS [facility] - HPI Chief Complaint: I need help to stop drinking alcohol Allergies/Adverse Reactions: Allergies Allergy/AdvReac Type Severity Reaction Status Date / Time latex Allergy Mild Rash Verified 02/27/18 10:35 History of Present Illness: this 47 years old male with alcohol dependence,seeking detox,seen in [facility] last night,last treatment 09/21 in rehab [facility] history of pancreatitis multiple admissions for detox,keep relapsing longest period of sobriety 8 months hepatitis c anxiety and depression Exam Limitations: No Limitations - Ebola screening Have you traveled outside of the country in the last 21 days: No Have you had contact with anyone from an Ebola affected area: No Have you been sick,other than usual withdrawal symptoms: No Do you have a fever: No - Review of Systems Constitutional: Loss of Appetite, Malaise, Night Sweats, Changes in sleep, Weakness EENT: reports: Nose Congestion Respiratory: reports: No Symptoms reported Cardiac: reports: Palpitations GI: reports: Diarrhea, Nausea, Abdominal cramping : reports: No Symptoms Reported Musculoskeletal: reports: Back Pain, Muscle Pain Integumentary: reports: Dryness Neuro: reports: Headache, Tremors Endocrine: reports: No Symptoms Reported Hematology: reports: No Symptoms Reported Psychiatric: reports: No Sypmtoms Reported, Judgement Intact, Mood/Affect Appropiate, Orientated x3, Anxious, Depressed Patient History - Patient Medical History Hx Anemia: Yes Hx Asthma: No Hx Chronic Obstructive Pulmonary Disease (COPD): No Hx Cancer: No Hx Cardiac Disorders: No Hx Hypertension: No Hx Hypercholesterolemia: No Hx Pacemaker: No HX Cerebrovascular Accident: No Hx Seizures: No Hx Dementia: No Hx Diabetes: No Hx Gastrointestinal Disorders: Yes (pancreatitis) Hx Liver Disease: Yes (early cirrhosis) Hx Genitourinary Disorders: No Hx Sexually Transmitted Disorders: No Hx Renal Disease (ESRD): No Hx Thyroid Disease: No Hx Hepatitis C: Yes (ab + viral load negative) Hx Depression: Yes Hx Suicide Attempt: No Hx Bipolar Disorder: No Hx Schizophrenia: No Other Medical History: no suicidal,no homicidal - Patient Surgical History Past Surgical History: Yes Hx Neurologic Surgery: No Hx Cataract Extraction: No Hx Cardiac Surgery: No Hx Lung Surgery: No Hx Breast Surgery: No Hx Breast Biopsy: No Hx Abdominal Surgery: No Hx Appendectomy: No Hx Cholecystectomy: Yes (09/18 lap in [place]) Hx Genitourinary Surgery: No Hx Section: No Hx Orthopedic Surgery: No Hx Hysterectomy: No Anesthesia Reaction: No - PPD History Previous Implant?: Yes Documented Results: Negative w/o proof Implanted On Prior [facility] Admission?: Yes Date: 01/31/17 Results: 0 mm PPD to be Administered?: Yes - Smoking Cessation Smoking history: Never smoked Have you smoked in the past 12 months: No Hx Chewing Tobacco Use: No Initiated information on smoking cessation: No - Substance & Tx. History Hx Alcohol Use: Yes Hx Substance Use: No Substance Use Type: Alcohol Hx Substance Use Treatment: Yes ([facility] rehab in 09/21) - Substances Abused Alcohol Route: Oral Frequency: Daily Amount used: 6-7 24 OZ BEERS Age of first use: 15 Date of Last Use: 02/26/18 Family Disease History - Family Disease History Family Disease History: Diabetes: Mother (living, etoh), Heart Disease: Mother, Other: Father ( MVA, etoh, pancreatitis), Mother, Brother, Sister Admission Physical Exam S - Vital Signs Vital Signs: Vital Signs - 24 hr 02/27/18 10:20 Temperature 97.9 F Pulse Rate 89 Respiratory 18 Rate Blood Pressure 159/97 - Physical General Appearance: Yes: Moderate Distress, Tremorous, Irritable, Sweating, Anxious HEENTM: Yes: Normal ENT Inspection, BUCK[place], Pharynx Normal Respiratory: Yes: Lungs Clear, Normal Breath Sounds, No Respiratory Distress Neck: Yes: Within Normal Limits, Supple, Trachea in good position Breast: Yes: Within Normal Limits Cardiology: Yes: Regular Rhythm, Regular Rate, S1, S2 Abdominal: Yes: Within Normal Limits, Normal Bowel Sounds, Soft, Other ( ecchymosis of abdominal wall) Genitourinary: Yes: Within Normal Limits Back: Yes: Muscle Spasm Musculoskeletal: Yes: Back pain, Muscle Pain Extremities: Yes: Within Normal Limits, Normal Range of Motion, Tremors Neurological: Yes: psychotherapist counselor II-XII NML intact, Fully Oriented, Alert, Motor Strength 5/5 Integumentary: Yes: Dry Lymphatic: Yes: Within Normal Limits - Diagnostic (1) Alcohol dependence with uncomplicated withdrawal Current Visit: No Status: Acute (2) Syncope Current Visit: Yes Status: Acute (3) History of pancreatitis Current Visit: Yes Status: Acute (4) Anxiety and depression Current Visit: Yes Status: Acute Cleared for Admission [facility] - Detox or Rehab [facility] Level of Care: Medically Managed Detox Regimen/Protocol: Librium [facility] Breath Alcohol Content Breath Alcohol Content: 0 Urine Drug Screen - Results Drug Screen Negative: No Urine Drug Screen Results: OPI-Opiates, BZO-Benzodiazepines
[2018-02-27] MEDS ORDERED: IBUPROFEN 400 MG TABLET (FP) PO PRN (11:18)
[2018-02-27] MEDS ORDERED: ACETAMINOPHEN 325 MG TABLET (FP) PO PRN (11:18)
[2018-02-27] MEDS ORDERED: P-EPHED 60MG/TRIPROLIDI 2.5MG TABLET PO PRN (11:18)
[2018-02-27] MEDS ORDERED: guaiFENesin/D-METHORPHAN HB 10 ML UNIT-DOSE CUPS PO PRN (11:18)
[2018-02-27] MEDS ORDERED: LOPERAMIDE HCL 2 MG CAPSULE PO PRN (11:18)
[2018-02-27] MEDS ORDERED: chlordiazePOXIDE HCL 25 MG CAPSULE PO PRN (11:18)
[2018-02-27] MEDS ORDERED: MAGNESIUM CITRATE 300 ML BOTTLE PO PRN (11:18)
[2018-02-27] MEDS ORDERED: MAG HYDROX/AL HYDROX/SIMETH 30 ML UNIT-DOSE CUP PO PRN (11:18)
[2018-02-27] MEDS ORDERED: MENTHOL/PHENOL 1 EACH UD MM PRN (11:18)
[2018-02-27] MEDS ORDERED: MAGNESIUM HYDROX 2400MG/30ML ORAL SUSPENSION 30 ML CUP PO PRN (11:18)
[2018-02-27] MEDS: chlordiazePOXIDE HCL 25 MG CAPSULE PO SCH ×2 (17:43→22:31)
--- NOTE | 2018-02-27 18:09 | EKG ---
Test Reason : Blood Pressure : / mmHG Vent. Rate : 085 BPM Atrial Rate : 085 BPM P-R Int : 146 ms QRS Dur : 096 ms QT Int : 388 ms P-R-T Axes : 068 -13 034 degrees QTc Int : 461 ms NORMAL SINUS RHYTHM NORMAL ECG WHEN COMPARED WITH ECG OF 29-JAN-2017 10:50, NO SIGNIFICANT CHANGE WAS FOUND Confirmed by STACY GROVE MD ([id number]) on 02/27/2018 6:09:30 PM Referred By: Confirmed By:STACY GROVE MD
[2018-02-27 18:43] LABS: URINE COLOR YELLOW
[2018-02-27 18:44] LABS: PH,URINE 6.5 (5.0-8.0); URINE APPEARANCE CLEAR; URINE BILIRUBIN NEGATIVE (<2.0 mg/dL); URINE GLUCOSE (UA) NEGATIVE (NEGATIVE); URINE KETONE NEGATIVE (NEGATIVE); URINE LEUK ESTERASE NEGATIVE (NEGATIVE); URINE NITRITE NEGATIVE (NEGATIVE); URINE PROTEIN NEGATIVE (NEGATIVE); URINE UROBILINOGEN NORMAL mg/dL (0.2-1.0)
[2018-02-27] MEDS: THIAMINE HCL 100 MG TABLET (FP) PO SCH (22:32)
[2018-02-27] MEDS: MELATONIN 5 MG TABLETS PO PRN (22:33)
[2018-02-28] MEDS: chlordiazePOXIDE HCL 25 MG CAPSULE PO SCH ×4 (05:08→22:24)
--- NOTE | 2018-02-28 10:07 | CONSULT ---
[facility] - Data Date of interview: 02/28/18 [facility] Identifying data: Patient is a 47 year old single male, without children, unemployed, domiciled, and is supported by his savings account. This is one of multiple admissions for patient. Pt. admitted to for alcohol dependence. Substance Abuse History: - Smoking Cessation. Smoking history: Never smoked. Have you smoked in the past 12 months: No. Hx Chewing Tobacco Use: No. Initiated information on smoking cessation: No. - Substance & Tx. History. Hx Alcohol Use: Yes. Hx Substance Use: No. Substance Use Type: Alcohol. Hx Substance Use Treatment: Yes ([facility] rehab in 09/21). - Substances Abused. * * Alcohol. Route: Oral. Frequency: Daily. Amount used: 6-7 24 OZ BEERS. Age of first use: 15. Date of Last Use: 02/26/18 Medical History: Anemia, Pancreatitis, Hep C Psychiatric History: Patient's first psychiatric contact was at [facility] approximately 2-3 years ago after seeking help secondary to his worsening anxiety. Mr. Hester anxiety begun during 02/14 after witnessing the traumatic event. While at [facility] he was prescribed lexapro 10mg and seroquel BID (unsure of dose but remembers taking 100mg at night). Approximately one year later patient admitted himself to rehab at [facility] and was started on risperdal. He accepted risperdal while at [facility] but was switched back to lexapro and seroquel after visiting the psychiatric emergency at [facility]. Mr. Hester denies h/o outpatient psychiatric care. He receives refills from various emergency rooms in [facility]. He has not accepted lexapro and seroquel since November of 2017 and is requesting to restart medication. Patient denies h/o suicide attempt. Physical/Sexual Abuse/Trauma History: denies. Mental Status Exam - Mental Status Exam Alert and Oriented to: Time, Place, Person Cognitive Function: Good Patient Appearance: Well Groomed Mood: Hopeful, Euthymic Affect: Mood Congruent Patient Behavior: Appropriate, Cooperative Speech Pattern: Appropriate Voice Loudness: Moderately Soft/Quiet Thought Process: Intact, Goal Oriented Thought Disorder: Not Present Hallucinations: Denies Suicidal Ideation: Denies Homicidal Ideation: Denies Insight/Judgement: Poor Sleep: Fair Appetite: Fair Muscle strength/Tone: Normal Gait/Station: Normal Psychiatric Findings - Problem List ([place] 1, 2,3) (1) Alcohol dependence with uncomplicated withdrawal Current Visit: Yes Status: Acute (2) Anxiety disorder Current Visit: Yes Status: Chronic (3) Alcohol-induced mood disorder Current Visit: Yes Status: Acute (4) Insomnia Current Visit: Yes Status: Acute - Initial Treatment Plan Initial Treatment Plan: Psychoeducation provided. Detoxification in progress. Lexapro 10mg + Seroquel 50mg qhs. Benefits and side effects discussed. Verbal consent given.
[2018-02-28] MEDS: PRENATAL VITAMINS W/ FOLIC ACID TABLET (FP) PO SCH (10:39)
[2018-02-28 10:55] LABS: HEMATOCRIT 26.6 % (35.4-49); HEMOGLOBIN 8.6 GM/dL (11.7-16.9); MCH 31.3 pg (25.7-33.7); MCHC 32.4 g/dl (32.0-35.9); MEAN CELL VOLUME 96.7 fl (80-96); MEAN PLT VOLUME 8.6 fl (7.5-11.1); PLATELET COUNT 88 K/MM3 (134-434); RBC 2.75 M/mm3 (4.00-5.60); RDW 20.5 % (11.9-15.9)
[2018-02-28 11:17] LABS: ALK PHOS 226 U/L (45-117); ANION GAP 8 MMOL/L (8-16); BILIRUBIN,TOTAL 1.1 mg/dL (0.2-1); BLOOD UREA NITROGEN 11 mg/dL (7-18); CALCIUM 7.9 mg/dL (8.5-10.1); CHLORIDE 109 mmol/L (98-107); CO2 24 mmol/L (21-32); CREATININE 0.5 mg/dL (0.55-1.3); GLUCOSE,RANDOM 83 mg/dL (74-106); POTASSIUM 4.3 mmol/L (3.5-5.1); SGOT/AST 85 U/L (15-37); SGPT/ALT 45 U/L (13-61); SODIUM 141 mmol/L (136-145); TOT PROT 7.4 g/dl (6.4-8.2)
[2018-02-28] MEDS: NICOTINE 21 MG/24 HOURS TOPICAL PATCH TD SCH (11:42)
[2018-02-28] MEDS: ESCITALOPRAM OXALATE 10 MG TABLET (FP) PO SCH (12:25)
--- NOTE | 2018-02-28 16:24 | PN ---
[facility] CIWA - CIWA Score Nausea/Vomitin-Mild Nausea/No Vomiting Muscle Tremors: 3 Anxiety: 4-Mod. Anxious/Guarded Agitation: 3 Paroxysmal Sweats: 1-Minimal Palms Moist Orientation: 0-Oriented Tacttile Disturbances: 1-Very Mild Itch/Numbness Auditory Disturbances: 0-None Visual Disturbances: 0-None Headache: 0-None Present CIWA-Ar Total Score: 13 [facility] Progress Note (SOAP) Subjective: sweat tremor anxiety restlessness Objective: 02/28/18 16:21 Vital Signs Temperature 97.9 F 02/28/18 13:13 Pulse Rate 84 02/28/18 13:13 Respiratory Rate 18 02/28/18 13:13 Blood Pressure 136/77 02/28/18 13:13 O2 Sat by Pulse Oximetry (%) Laboratory Last Values WBC 3.0 K/mm3 (4.0-10.0) L 02/28/18 06:00 RBC 2.75 M/mm3 (4.00-5.60) L 02/28/18 06:00 Hgb 8.6 GM/dL (11.7-16.9) L 02/28/18 06:00 Hct 26.6 % (35.4-49) L 02/28/18 06:00 MCV 96.7 fl (80-96) H 02/28/18 06:00 MCH 31.3 pg (25.7-33.7) 02/28/18 06:00 MCHC 32.4 g/dl (32.0-35.9) 02/28/18 06:00 RDW 20.5 % (11.9-15.9) H 02/28/18 06:00 Plt Count 88 K/MM3 (134-434) L 02/28/18 06:00 MPV 8.6 fl (7.5-11.1) D 02/28/18 06:00 Sodium 141 mmol/L (136-145) 02/28/18 06:00 Potassium 4.3 mmol/L (3.5-5.1) 02/28/18 06:00 Chloride 109 mmol/L (98-107) H 02/28/18 06:00 Carbon Dioxide 24 mmol/L (21-32) 02/28/18 06:00 Anion Gap 8 MMOL/L (8-16) 02/28/18 06:00 BUN 11 mg/dL (7-18) 02/28/18 06:00 Creatinine 0.5 mg/dL (0.55-1.3) L 02/28/18 06:00 Creat Clearance w eGFR > 60 (>60) 02/28/18 06:00 Random Glucose 83 mg/dL (74-106) 02/28/18 06:00 Calcium 7.9 mg/dL (8.5-10.1) L 02/28/18 06:00 Total Bilirubin 1.1 mg/dL (0.2-1) H 02/28/18 06:00 AST 85 U/L (15-37) H 02/28/18 06:00 ALT 45 U/L (13-61) 02/28/18 06:00 Alkaline Phosphatase 226 U/L (45-117) H 02/28/18 06:00 Total Protein 7.4 g/dl (6.4-8.2) 02/28/18 06:00 Albumin 3.0 g/dl (3.4-5.0) L 02/28/18 06:00 Urine Color Yellow 02/27/18 12:08 Urine Appearance Clear 02/27/18 12:08 Urine pH 6.5 (5.0-8.0) D 02/27/18 12:08 Ur Specific [place] 1.025 (1.001-1.035) 02/27/18 12:08 Urine Protein Negative (NEGATIVE) 02/27/18 12:08 Urine Glucose (UA) Negative (NEGATIVE) 02/27/18 12:08 Urine Ketones Negative (NEGATIVE) 02/27/18 12:08 Urine Blood Negative (NEGATIVE) 02/27/18 12:08 Urine Nitrite Negative (NEGATIVE) 02/27/18 12:08 Urine Bilirubin Negative (<2.0 mg/dL) 02/27/18 12:08 Urine Urobilinogen Normal mg/dL (0.2-1.0) 02/27/18 12:08 Ur Leukocyte Esterase Negative (NEGATIVE) 02/27/18 12:08 RPR Titer Nonreactive (NONREACTIVE) 02/28/18 06:00 hypocalcemia lab noted 02/28/18 16:21 Assessment: 02/28/18 16:24 withdrawal sx Plan: continue detox
[2018-02-28] MEDS: CALCIUM 250MG/VIT-D 125 UNITS 1 COMBO TABLET PO SCH (17:58)
[2018-02-28] MEDS ORDERED: QUEtiapine FUMARATE 50 MG TABLET PO SCH (22:00)
[2018-02-28] MEDS: THIAMINE HCL 100 MG TABLET (FP) PO SCH (22:24)
[2018-03-01] MEDS: MELATONIN 5 MG TABLETS PO PRN (00:45)
[2018-03-01] MEDS: chlordiazePOXIDE HCL 25 MG CAPSULE PO SCH ×2 (06:05→10:13)
[2018-03-01] MEDS: NICOTINE 21 MG/24 HOURS TOPICAL PATCH TD SCH (10:13)
[2018-03-01] MEDS: PRENATAL VITAMINS W/ FOLIC ACID TABLET (FP) PO SCH (10:13)
[2018-03-01] MEDS: ESCITALOPRAM OXALATE 10 MG TABLET (FP) PO SCH (10:13)
[2018-03-01] MEDS: CALCIUM 250MG/VIT-D 125 UNITS 1 COMBO TABLET PO SCH (10:13)
--- NOTE | 2018-03-01 15:12 | PN ---
S CIWA - CIWA Score Nausea/Vomitin-No Nausea/No Vomiting Muscle Tremors: 3 Anxiety: 4-Mod. Anxious/Guarded Agitation: 2 Paroxysmal Sweats: 1-Minimal Palms Moist Orientation: 0-Oriented Tacttile Disturbances: 1-Very Mild Itch/Numbness Auditory Disturbances: 0-None Visual Disturbances: 0-None Headache: 1-Very Mild CIWA-Ar Total Score: 12 [facility] Progress Note (SOAP) Subjective: tremor sweat anxiety restlessness trouble sleep at night Objective: 03/01/18 15:18 Vital Signs Temperature 98.1 F 03/01/18 13:20 Pulse Rate 84 03/01/18 13:20 Respiratory Rate 18 03/01/18 13:20 Blood Pressure 121/62 03/01/18 13:20 O2 Sat by Pulse Oximetry (%) Laboratory Last Values WBC 3.0 K/mm3 (4.0-10.0) L 02/28/18 06:00 RBC 2.75 M/mm3 (4.00-5.60) L 02/28/18 06:00 Hgb 8.6 GM/dL (11.7-16.9) L 02/28/18 06:00 Hct 26.6 % (35.4-49) L 02/28/18 06:00 MCV 96.7 fl (80-96) H 02/28/18 06:00 MCH 31.3 pg (25.7-33.7) 02/28/18 06:00 MCHC 32.4 g/dl (32.0-35.9) 02/28/18 06:00 RDW 20.5 % (11.9-15.9) H 02/28/18 06:00 Plt Count 88 K/MM3 (134-434) L 02/28/18 06:00 MPV 8.6 fl (7.5-11.1) D 02/28/18 06:00 Sodium 141 mmol/L (136-145) 02/28/18 06:00 Potassium 4.3 mmol/L (3.5-5.1) 02/28/18 06:00 Chloride 109 mmol/L (98-107) H 02/28/18 06:00 Carbon Dioxide 24 mmol/L (21-32) 02/28/18 06:00 Anion Gap 8 MMOL/L (8-16) 02/28/18 06:00 BUN 11 mg/dL (7-18) 02/28/18 06:00 Creatinine 0.5 mg/dL (0.55-1.3) L 02/28/18 06:00 Creat Clearance w eGFR > 60 (>60) 02/28/18 06:00 Random Glucose 83 mg/dL (74-106) 02/28/18 06:00 Calcium 7.9 mg/dL (8.5-10.1) L 02/28/18 06:00 Total Bilirubin 1.1 mg/dL (0.2-1) H 02/28/18 06:00 AST 85 U/L (15-37) H 02/28/18 06:00 ALT 45 U/L (13-61) 02/28/18 06:00 Alkaline Phosphatase 226 U/L (45-117) H 02/28/18 06:00 Total Protein 7.4 g/dl (6.4-8.2) 02/28/18 06:00 Albumin 3.0 g/dl (3.4-5.0) L 02/28/18 06:00 Urine Color Yellow 02/27/18 12:08 Urine Appearance Clear 02/27/18 12:08 Urine pH 6.5 (5.0-8.0) D 02/27/18 12:08 Ur Specific [place] 1.025 (1.001-1.035) 02/27/18 12:08 Urine Protein Negative (NEGATIVE) 02/27/18 12:08 Urine Glucose (UA) Negative (NEGATIVE) 02/27/18 12:08 Urine Ketones Negative (NEGATIVE) 02/27/18 12:08 Urine Blood Negative (NEGATIVE) 02/27/18 12:08 Urine Nitrite Negative (NEGATIVE) 02/27/18 12:08 Urine Bilirubin Negative (<2.0 mg/dL) 02/27/18 12:08 Urine Urobilinogen Normal mg/dL (0.2-1.0) 02/27/18 12:08 Ur Leukocyte Esterase Negative (NEGATIVE) 02/27/18 12:08 RPR Titer Nonreactive (NONREACTIVE) 02/28/18 06:00 lab noted Assessment: 03/01/18 15:19 withdrawal sx Plan: continue detox
--- NOTE | 2018-03-01 16:37 | PN ---
Psychiatric Progress Note Vital Signs: Vital Signs Period Temp Pulse Resp BP Sys/Pineda Pulse Ox Last 24 Hr 97.5 F-98.4 F 77-85 18-19 108-126/58-67 Date of Session: 03/01/18 Chief Complaint:: "I have anxiety and difficulty sleeping." HPI: Pt. admitted to for alcohol dependence. ROS: Anemia, Pancreatitis, Hep C Current Medications: Active Medications Generic Name Dose Route Start Last Admin Trade Name Freq PRN Reason Stop Dose Admin Acetaminophen 650 mg 02/27/18 11:18 Tylenol - PO Q4H PRN FEVER Al Hydroxide/Mg Hydroxide 30 ml 02/27/18 11:18 Mylanta Oral Suspension - PO Q6H PRN DYSPEPSIA Calcium/Vitamin D 1 tab 02/28/18 16:30 03/01/18 10:13 Oscal 250 Mg+D - PO 1 tab DAILY CHASE Administration Chlordiazepoxide HCl 15 mg 03/01/18 17:00 Librium - PO 03/02/18 11:01 [id number] CHASE Chlordiazepoxide HCl 25 mg 02/27/18 11:18 02/27/18 12:06 Librium - PO 03/02/18 11:17 25 mg Q4H PRN Administration WITHDRAWAL(CONT SUBST) Chlordiazepoxide HCl 10 mg 03/02/18 17:00 Librium - PO 03/03/18 11:01 [id number] CHASE Escitalopram Oxalate 10 mg 02/28/18 11:00 03/01/18 10:13 Lexapro - PO 10 mg DAILY CHASE Administration Eucalyptus/Menthol/Phenol/Sorbitol 1 each 02/27/18 11:18 Cepastat Lozenge - MM Q4H PRN SORE THROAT Guaifenesin 10 ml 02/27/18 11:18 Robitussin Dm - PO Q6H PRN COUGH Hydroxyzine Pamoate 50 mg 02/27/18 11:18 Vistaril - PO Q4H PRN AGITATION Ibuprofen 400 mg 02/27/18 11:18 Motrin - PO Q6H PRN PAIN LEVEL 4-6 Loperamide HCl 4 mg 02/27/18 11:18 Imodium - PO Q6H PRN DIARRHEA Magnesium Citrate 300 ml 02/27/18 11:18 Citroma - PO Q48H PRN CONSTIPATION Magnesium Hydroxide 30 ml 02/27/18 11:18 Milk Of Magnesia - PO DAILY PRN CONSTIPATION Melatonin 5 mg 02/27/18 22:00 03/01/18 00:45 Melatonin PO 5 mg HS PRN Administration INSOMNIA Nicotine 21 mg 02/28/18 10:45 03/01/18 10:13 Nicoderm Patch - TD 21 mg DAILY CHASE Administration Nicotine Polacrilex 4 mg 02/28/18 10:44 Nicorette Gum - BUC Q2H PRN NICOTINE REPLACEMENT RX Multivit/Folic Acid/Iron 1 tab 02/28/18 10:00 03/01/18 10:13 Vitamins (Sjr) - PO 1 tab DAILY CHASE Administration Pseudoephedrine/Triprolidine 1 combo 02/27/18 11:18 Actifed - PO TID PRN NASAL CONGESTION Quetiapine Fumarate 50 mg 02/28/18 22:00 02/28/18 22:24 Seroquel - PO 50 mg HS CHASE Administration Thiamine HCl 100 mg 02/27/18 22:00 02/28/18 22:24 Vitamin B1 - PO 100 mg HS CHASE Administration Medication(s) Change(s): Will increase seroquel 50mg to 100mg qhs. Current Side Effect: No Lab tests ordered: No Lab tests reviewed: Yes Provider note:: Chart reviewed. Pt. seen by engineering writer on 02/28/18. Lexapro 10mg + Seroquel 50mg ordered. Pt. c/o worsening anxiety. He was informed that vistaril 50mg q4h is ordered. As per the MAR, patient has yet to accept vistaril. He reports not knowing it was available. Pt. educated on the benefits and side effects of vistaril. In addition, patient reports poor sleep. Will increase seroquel to 100mg qhs. Verbal consent given. Total face to face time:: 25 Mental Status Exam - Mental Status Exam Alert and Oriented to: Time, Place, Person Cognitive Function: Good Patient Appearance: Well Groomed Mood: Euthymic Affect: Appropriate Patient Behavior: Appropriate, Cooperative Speech Pattern: Clear, Appropriate Voice Loudness: Normal Thought Process: Intact, Goal Oriented Thought Disorder: Not Present Hallucinations: Denies Suicidal Ideation: Denies Homicidal Ideation: Denies Insight/Judgement: Poor Sleep: Poorly Appetite: Fair Muscle strength/Tone: Normal Gait/Station: Normal Psychiatric Treatment Plan - Problem List (1) Alcohol dependence with uncomplicated withdrawal Current Visit: Yes (2) Anxiety disorder Current Visit: Yes (3) Alcohol-induced mood disorder Current Visit: Yes (4) Insomnia Current Visit: Yes
[2018-03-01] MEDS: chlordiazePOXIDE 5 MG CAPSULE PO SCH ×2 (16:55→22:13)
[2018-03-01] MEDS: hydrOXYzine PAMOATE 50 MG CAPSULE (FP) PO PRN ×2 (16:55→22:15)
[2018-03-01] MEDS: NICOTINE POLACRILEX 4 MG GUM BUC PRN (19:37)
[2018-03-01] MEDS: THIAMINE HCL 100 MG TABLET (FP) PO SCH (22:12)
[2018-03-01] MEDS: QUEtiapine FUMARATE 100 MG TABLET (FP) PO SCH (22:12)
[2018-03-02] MEDS: MELATONIN 5 MG TABLETS PO PRN (01:05)
[2018-03-02] MEDS: chlordiazePOXIDE 5 MG CAPSULE PO SCH ×2 (06:00→11:35)
[2018-03-02] MEDS: NICOTINE 21 MG/24 HOURS TOPICAL PATCH TD SCH (11:34)
[2018-03-02] MEDS: PRENATAL VITAMINS W/ FOLIC ACID TABLET (FP) PO SCH (11:34)
[2018-03-02] MEDS: ESCITALOPRAM OXALATE 10 MG TABLET (FP) PO SCH (11:34)
[2018-03-02] MEDS: CALCIUM 250MG/VIT-D 125 UNITS 1 COMBO TABLET PO SCH (11:34)
--- NOTE | 2018-03-02 11:50 | PN ---
[facility] Progress Note Note: Vital Signs Temperature 96.6 F L 03/02/18 09:08 Pulse Rate 76 03/02/18 09:08 Respiratory Rate 18 03/02/18 09:08 Blood Pressure 105/54 L 03/02/18 09:08 O2 Sat by Pulse Oximetry (%) Laboratory Last Values WBC 3.0 K/mm3 (4.0-10.0) L 02/28/18 06:00 RBC 2.75 M/mm3 (4.00-5.60) L 02/28/18 06:00 Hgb 8.6 GM/dL (11.7-16.9) L 02/28/18 06:00 Hct 26.6 % (35.4-49) L 02/28/18 06:00 MCV 96.7 fl (80-96) H 02/28/18 06:00 MCH 31.3 pg (25.7-33.7) 02/28/18 06:00 MCHC 32.4 g/dl (32.0-35.9) 02/28/18 06:00 RDW 20.5 % (11.9-15.9) H 02/28/18 06:00 Plt Count 88 K/MM3 (134-434) L 02/28/18 06:00 MPV 8.6 fl (7.5-11.1) D 02/28/18 06:00 Sodium 141 mmol/L (136-145) 02/28/18 06:00 Potassium 4.3 mmol/L (3.5-5.1) 02/28/18 06:00 Chloride 109 mmol/L (98-107) H 02/28/18 06:00 Carbon Dioxide 24 mmol/L (21-32) 02/28/18 06:00 Anion Gap 8 MMOL/L (8-16) 02/28/18 06:00 BUN 11 mg/dL (7-18) 02/28/18 06:00 Creatinine 0.5 mg/dL (0.55-1.3) L 02/28/18 06:00 Creat Clearance w eGFR > 60 (>60) 02/28/18 06:00 Random Glucose 83 mg/dL (74-106) 02/28/18 06:00 Calcium 7.9 mg/dL (8.5-10.1) L 02/28/18 06:00 Total Bilirubin 1.1 mg/dL (0.2-1) H 02/28/18 06:00 AST 85 U/L (15-37) H 02/28/18 06:00 ALT 45 U/L (13-61) 02/28/18 06:00 Alkaline Phosphatase 226 U/L (45-117) H 02/28/18 06:00 Total Protein 7.4 g/dl (6.4-8.2) 02/28/18 06:00 Albumin 3.0 g/dl (3.4-5.0) L 02/28/18 06:00 Urine Color Yellow 02/27/18 12:08 Urine Appearance Clear 02/27/18 12:08 Urine pH 6.5 (5.0-8.0) D 02/27/18 12:08 Ur Specific Wilbur 1.025 (1.001-1.035) 02/27/18 12:08 Urine Protein Negative (NEGATIVE) 02/27/18 12:08 Urine Glucose (UA) Negative (NEGATIVE) 02/27/18 12:08 Urine Ketones Negative (NEGATIVE) 02/27/18 12:08 Urine Blood Negative (NEGATIVE) 02/27/18 12:08 Urine Nitrite Negative (NEGATIVE) 02/27/18 12:08 Urine Bilirubin Negative (<2.0 mg/dL) 02/27/18 12:08 Urine Urobilinogen Normal mg/dL (0.2-1.0) 02/27/18 12:08 Ur Leukocyte Esterase Negative (NEGATIVE) 02/27/18 12:08 RPR Titer Nonreactive (NONREACTIVE) 02/28/18 06:00 c/o interrupted sleep and chills AOx3 no distress no adventitious breath sounds full ROM, ambulating in unit independently withdrawal sx increase PO fluids continue to monitor Patient medically stable, d/c in AM
[2018-03-02] MEDS: chlordiazePOXIDE HCL 10 MG CAPSULE PO SCH ×2 (17:10→22:24)
[2018-03-02] MEDS: hydrOXYzine PAMOATE 50 MG CAPSULE (FP) PO PRN ×2 (17:11→22:23)
[2018-03-02] MEDS: NICOTINE POLACRILEX 4 MG GUM BUC PRN (19:35)
[2018-03-02] MEDS: QUEtiapine FUMARATE 100 MG TABLET (FP) PO SCH (22:23)
[2018-03-02] MEDS: THIAMINE HCL 100 MG TABLET (FP) PO SCH (22:23)
[2018-03-03] MEDS: chlordiazePOXIDE HCL 10 MG CAPSULE PO SCH ×2 (06:01→10:09)
[2018-03-03] MEDS: hydrOXYzine PAMOATE 50 MG CAPSULE (FP) PO PRN (06:03)
--- NOTE | 2018-03-03 09:10 | DS ---
[facility] Detox Discharge Summary Admission Date: 02/27/18 Discharge Date: 03/03/18 - History Present History: Alcohol Dependence - Physical Exam Results Vital Signs: Vital Signs Temperature 98.4 F 03/03/18 05:55 Pulse Rate 78 03/03/18 05:55 Respiratory Rate 20 03/03/18 05:55 Blood Pressure 96/59 L 03/03/18 05:55 O2 Sat by Pulse Oximetry (%) - Treatment Hospital Course: Detox Protocol Followed, Detoxed Safely, Responded well, Discharged Condition Good, Rehab Referral Accepted - Medication Discharge Medications: Ambulatory Orders Escitalopram Oxalate [Lexapro -] 10 mg PO DAILY 02/28/18 - Diagnosis (1) Alcohol dependence with uncomplicated withdrawal Current Visit: Yes Status: Acute (2) Alcohol-induced mood disorder Current Visit: Yes Status: Acute (3) Anxiety and depression Current Visit: Yes Status: Acute (4) History of pancreatitis Current Visit: Yes Status: Acute (5) Insomnia Current Visit: Yes Status: Acute (6) Syncope Current Visit: Yes Status: Acute (7) Anxiety disorder Current Visit: Yes Status: Chronic (8) EtOH dependence Current Visit: No Status: Acute Qualifiers: (9) Pancreatitis Current Visit: No Status: Acute Qualifiers: (10) Allergic reaction Current Visit: No Status: Chronic Qualifiers: Encounter type: initial encounter Qualified Code(s): T78.40XA - Allergy, unspecified, initial encounter (11) Seborrhea Current Visit: No Status: Chronic - AMA Did Patient Leave Against Medical Advice: No
[2018-03-03 09:31] VITALS: BP 140/80; PULSE 82; TEMP 97.3
[2018-03-03] MEDS: CALCIUM 250MG/VIT-D 125 UNITS 1 COMBO TABLET PO SCH (10:05)
[2018-03-03] MEDS: NICOTINE 21 MG/24 HOURS TOPICAL PATCH TD SCH (10:05)
[2018-03-03] MEDS: ESCITALOPRAM OXALATE 10 MG TABLET (FP) PO SCH (10:05)
[2018-03-03] MEDS: PRENATAL VITAMINS W/ FOLIC ACID TABLET (FP) PO SCH (10:08)
== END 2018-03-03 13:05 | disposition other institution (70) | DRG 775 ==
LOC: YASAS 09:54 → Y6N 11:13
PROC: HZ2ZZZZ Detoxification Services for Substance Abuse Treatment (ICD-10-PCS; principal; 2018-02-27)
DX: F10.230 Alcohol dependence with withdrawal, uncomplicated (principal); F10.24 Alcohol dependence with alcohol-induced mood disorder; F41.9 Anxiety disorder, unspecified; F32.9 Major depressive disorder, single episode, unspecified; G47.00 Insomnia, unspecified; B18.2 Chronic viral hepatitis C; D64.9 Anemia, unspecified; K85.90 Acute pancreatitis without necrosis or infection, unspecified; L21.9 Seborrheic dermatitis, unspecified; R55 Syncope and collapse; T78.40XA Allergy, unspecified, initial encounter
CPT/HCPCS: 36415; 80053; 81003; 85027; 86593; 93005; 93010

== ENCOUNTER 2018-03-03 13:08 | Inpatient (IN) | payer OTHER ==
--- NOTE | 2018-03-03 13:44 | HP ---
Psychiatrist Admission - Data Date of interview: 03/03/18 Admission source: 6N Identifying data: This is the first [facility] admission for this 47 years old single Polish-Armenian male, unemployed supported on savings, homeless Medical History: Significant for anemia, cirrhosis of the liver, history of pancreatitis and laparoscopic cholecystectomy. Psychiatric History: Mr Hester told customs entry writer that he believes that he has been suffering from anxiety all his life and it is probably why he started drinking alcohol as a way to self medicate himself. He said that his anxiety worsened after he witnessed the [place] incident on since he lived nearby. He reports that his first psychiatric contact occured approximately a year after the incident when he was admitted to [facility] for 10 days and treated for anxiety with Lexapro 10 mg po daily and Seroquel ? mg po BID. Claims he has no recollection of dosage of Seroquel but believes the HS dose was 100 mg. After his discharge from [facility], he was referred to a clinic in [facility] but did not go. In 2016, while on inpatient rehab @ [facility] , he was prescribed Risperdal 2 mg po HS and Gabapentin 600 mg po TID for anxiety. At some point following his discharge from the rehab, he visited the ED at [facility] and his medication regimen was switched back to Lexapro and Seroquel. Reports history of non adherence to OPD care and medications. Told customs entry writer that prior to his recent inpatient detox admission in this facility, he has not taken in 6 months. He saw NAKUL Parks on 02/28/18 during that recent detox admission and was prescribed Lexapro 10 mg po daily and Seroquel 50 mg po HSDenies history of prior suicidal attempt. At present, reports feeling anxious and sleeping poorly Physical/Sexual Abuse/Trauma History: Denies history of emotional, physical or sexual abuse as well as DV relationship Additional Comment: Reports history of one previous arrest for urination in public Vital Signs: Vital Signs - 24 hr 03/03/18 13:03 Temperature 98.0 F Pulse Rate 83 Respiratory 18 Rate Blood Pressure 103/56 L Allergies/Adverse Reactions: Allergies Allergy/AdvReac Type Severity Reaction Status Date / Time latex Allergy Mild Rash Verified 02/27/18 10:35 Date of last physical exam: 02/27/18 Concur with the findings of this exam: Yes - Substance Abuse/Tx History Hx Alcohol Use: Yes Hx Substance Use: No Substance Use Type: Alcohol (Started drinking alcohol at age 15, consumes 6-7x 24oz daily. Last drank on 02/26/18) Hx Substance Use Treatment: Yes (4 previous inpt detox & 3 inpt rebab([facility])) Mental Status Exam - Mental Status Exam Alert and Oriented to: Time, Place, Person Cognitive Function: Fair Patient Appearance: Well Groomed Mood: Anxious Affect: Appropriate Patient Behavior: Cooperative Speech Pattern: Clear Voice Loudness: Normal Thought Process: Intact, Goal Oriented Hallucinations: Denies Suicidal Ideation: Denies Homicidal Ideation: Denies Insight/Judgement: Fair Sleep: Poorly Appetite: Good Muscle strength/Tone: Normal Gait/Station: Normal Psychiatric Findings - Problem List ([place] 1, 2,3) (1) Alcohol dependence Current Visit: Yes Status: Acute (2) Anxiety disorder Current Visit: No Status: Chronic (3) DEE DEE (generalized anxiety disorder) Current Visit: Yes Status: Ruled-out (4) Alcohol-induced anxiety disorder Current Visit: Yes Status: Acute (5) Alcohol-induced sleep disorder Current Visit: Yes Status: Acute (6) History of pancreatitis Current Visit: No Status: Chronic (7) Hepatitis C Current Visit: Yes Status: Chronic (8) Anemia Current Visit: Yes Status: Acute (9) Cirrhosis of liver Current Visit: Yes Status: Acute - Initial Treatment Plan Initial Treatment Plan: 1) Continue Lexapro 10 mg po daily and Seroquel 50 mg po HS. 2) Monitor progress
[2018-03-03] MEDS ORDERED: MAG HYDROX/AL HYDROX/SIMETH 30 ML UNIT-DOSE CUP PO PRN (14:37)
[2018-03-03] MEDS ORDERED: P-EPHED 60MG/TRIPROLIDI 2.5MG TABLET PO PRN (14:37)
[2018-03-03] MEDS ORDERED: MAGNESIUM CITRATE 300 ML BOTTLE PO PRN (14:37)
[2018-03-03] MEDS ORDERED: MENTHOL/PHENOL 1 EACH UD MM PRN (14:37)
[2018-03-03] MEDS ORDERED: guaiFENesin/D-METHORPHAN HB 10 ML UNIT-DOSE CUPS PO PRN (14:37)
[2018-03-03] MEDS ORDERED: LOPERAMIDE HCL 2 MG CAPSULE PO PRN (14:37)
[2018-03-03] MEDS ORDERED: MAGNESIUM HYDROX 2400MG/30ML ORAL SUSPENSION 30 ML CUP PO PRN (14:37)
[2018-03-03] MEDS ORDERED: ACETAMINOPHEN 325 MG TABLET (FP) PO PRN (14:37)
[2018-03-03] MEDS: hydrOXYzine PAMOATE 50 MG CAPSULE (FP) PO PRN (16:03)
[2018-03-03] MEDS: QUEtiapine FUMARATE 50 MG TABLET PO SCH (21:31)
[2018-03-03] MEDS: THIAMINE HCL 100 MG TABLET (FP) PO SCH (21:31)
[2018-03-03] MEDS ORDERED: MELATONIN 5 MG TABLETS PO PRN (22:00)
[2018-03-04] MEDS: hydrOXYzine PAMOATE 50 MG CAPSULE (FP) PO PRN ×3 (09:41→21:33)
[2018-03-04] MEDS: ESCITALOPRAM OXALATE 10 MG TABLET (FP) PO SCH (09:42)
[2018-03-04] MEDS: PRENATAL VITAMINS W/ FOLIC ACID TABLET (FP) PO SCH (09:42)
[2018-03-04] MEDS: NICOTINE 21 MG/24 HOURS TOPICAL PATCH TD SCH (13:51)
[2018-03-04] MEDS: THIAMINE HCL 100 MG TABLET (FP) PO SCH (21:33)
[2018-03-04] MEDS: CYCLOBENZAPRINE HCL 10 MG TABLET (FP) PO PRN (21:33)
[2018-03-04] MEDS: QUEtiapine FUMARATE 50 MG TABLET PO SCH (21:35)
[2018-03-05] MEDS: ESCITALOPRAM OXALATE 10 MG TABLET (FP) PO SCH (09:46)
[2018-03-05] MEDS: NICOTINE 21 MG/24 HOURS TOPICAL PATCH TD SCH (09:46)
[2018-03-05] MEDS: PRENATAL VITAMINS W/ FOLIC ACID TABLET (FP) PO SCH (09:46)
[2018-03-05] MEDS: CYCLOBENZAPRINE HCL 10 MG TABLET (FP) PO PRN ×2 (09:47→21:39)
[2018-03-05] MEDS: hydrOXYzine PAMOATE 50 MG CAPSULE (FP) PO PRN ×2 (09:47→21:39)
[2018-03-05] MEDS: QUEtiapine FUMARATE 50 MG TABLET PO SCH (21:39)
[2018-03-05] MEDS: THIAMINE HCL 100 MG TABLET (FP) PO SCH (21:39)
[2018-03-06] MEDS: ESCITALOPRAM OXALATE 10 MG TABLET (FP) PO SCH (09:49)
[2018-03-06] MEDS: NICOTINE 21 MG/24 HOURS TOPICAL PATCH TD SCH (09:49)
[2018-03-06] MEDS: PRENATAL VITAMINS W/ FOLIC ACID TABLET (FP) PO SCH (09:49)
[2018-03-06] MEDS: CYCLOBENZAPRINE HCL 10 MG TABLET (FP) PO PRN ×2 (09:50→21:15)
[2018-03-06] MEDS: hydrOXYzine PAMOATE 50 MG CAPSULE (FP) PO PRN ×2 (14:15→21:15)
[2018-03-06] MEDS: IBUPROFEN 400 MG TABLET (FP) PO PRN (14:17)
--- NOTE | 2018-03-06 15:48 | PN ---
[facility] Progress Note Note: C/O BACK PAIN. ON FLEXERIL PRN PLAN:CONTINUE FLEXERIL DIRECTED MOTRIN PRN INCREASE PO FLUIDS
[2018-03-06] MEDS: QUEtiapine FUMARATE 50 MG TABLET PO SCH (21:13)
[2018-03-06] MEDS: THIAMINE HCL 100 MG TABLET (FP) PO SCH (21:14)
[2018-03-07] MEDS: PRENATAL VITAMINS W/ FOLIC ACID TABLET (FP) PO SCH (09:30)
[2018-03-07] MEDS: ESCITALOPRAM OXALATE 10 MG TABLET (FP) PO SCH (09:30)
[2018-03-07] MEDS: NICOTINE 21 MG/24 HOURS TOPICAL PATCH TD SCH (09:30)
[2018-03-07] MEDS: hydrOXYzine PAMOATE 50 MG CAPSULE (FP) PO PRN ×2 (09:31→21:26)
[2018-03-07] MEDS: CYCLOBENZAPRINE HCL 10 MG TABLET (FP) PO PRN (21:26)
[2018-03-07] MEDS: QUEtiapine FUMARATE 50 MG TABLET PO SCH (21:26)
[2018-03-07] MEDS: THIAMINE HCL 100 MG TABLET (FP) PO SCH (21:26)
[2018-03-08] MEDS: NICOTINE 21 MG/24 HOURS TOPICAL PATCH TD SCH (09:33)
[2018-03-08] MEDS: PRENATAL VITAMINS W/ FOLIC ACID TABLET (FP) PO SCH (09:33)
[2018-03-08] MEDS: ESCITALOPRAM OXALATE 10 MG TABLET (FP) PO SCH (09:33)
[2018-03-08] MEDS: hydrOXYzine PAMOATE 50 MG CAPSULE (FP) PO PRN ×2 (09:34→21:23)
[2018-03-08] MEDS: IBUPROFEN 400 MG TABLET (FP) PO PRN (12:22)
[2018-03-08] MEDS: NICOTINE POLACRILEX 4 MG GUM BUC PRN (14:08)
[2018-03-08] MEDS: THIAMINE HCL 100 MG TABLET (FP) PO SCH (21:22)
[2018-03-08] MEDS: QUEtiapine FUMARATE 50 MG TABLET PO SCH (21:22)
[2018-03-08] MEDS: CYCLOBENZAPRINE HCL 10 MG TABLET (FP) PO PRN (21:23)
--- NOTE | 2018-03-08 23:16 | HP ---
MEET[facility]IX[facility] Rehab Assess/Revision - Admission History Admitted to Rehab from: [facility] [place] Date of Admission to Rehab: 03/03/18 - Vital signs Vital Signs: Vital Signs Period Temp Pulse Resp BP Sys/Pineda Pulse Ox Last 24 Hr 98.2 F 75 18-18 119/69 - Findings Detox History & Physical reviewed: Yes Concur with findings: Yes Inpatient Rehab Admission - Initial Determination Are CD services needed?: Yes Free of communicable disease: Yes Not in need of hospitalization: Yes - Rehab Admission Criteria Patient is meeting Inpatient Rehab admission criteria:: Yes
[2018-03-09] MEDS: PRENATAL VITAMINS W/ FOLIC ACID TABLET (FP) PO SCH (09:58)
[2018-03-09] MEDS: ESCITALOPRAM OXALATE 10 MG TABLET (FP) PO SCH (09:58)
[2018-03-09] MEDS: NICOTINE 21 MG/24 HOURS TOPICAL PATCH TD SCH (09:58)
[2018-03-09] MEDS: hydrOXYzine PAMOATE 50 MG CAPSULE (FP) PO PRN ×2 (09:59→21:37)
[2018-03-09] MEDS: NICOTINE POLACRILEX 4 MG GUM BUC PRN ×2 (13:02→17:53)
--- NOTE | 2018-03-09 13:41 | PN ---
[facility] Progress Note Note: PT C/O COLD SYMPTOMS- SORETHROAT, NASAL CONGESTION,HEADACHE. DENIES N/V/D. REPORTS GETTING BETTER THAN A DAY OR TWO AGO. Vital Signs 03/09/18 06:30 Temperature 97.7 F Pulse Rate 68 Respiratory 18 Rate Blood Pressure 115/71 THROAT EXAM: NO REDNESS/SWELLING OR EXUDATES. LUNGS CLEAR TO A/P PLAN:ROBITUSSIN DM ACTIFED PRN TYLENOL OR MOTRIN PRN INCREASE PO FLUIDS
[2018-03-09] MEDS: QUEtiapine FUMARATE 50 MG TABLET PO SCH (21:37)
[2018-03-09] MEDS: CYCLOBENZAPRINE HCL 10 MG TABLET (FP) PO PRN (21:37)
[2018-03-09] MEDS: THIAMINE HCL 100 MG TABLET (FP) PO SCH (21:37)
[2018-03-10] MEDS: NICOTINE 21 MG/24 HOURS TOPICAL PATCH TD SCH (09:46)
[2018-03-10] MEDS: ESCITALOPRAM OXALATE 10 MG TABLET (FP) PO SCH (09:46)
[2018-03-10] MEDS: hydrOXYzine PAMOATE 50 MG CAPSULE (FP) PO PRN ×2 (09:47→21:41)
[2018-03-10] MEDS: PRENATAL VITAMINS W/ FOLIC ACID TABLET (FP) PO SCH (09:47)
[2018-03-10] MEDS: NICOTINE POLACRILEX 4 MG GUM BUC PRN ×2 (11:05→17:55)
[2018-03-10] MEDS: THIAMINE HCL 100 MG TABLET (FP) PO SCH (21:41)
[2018-03-10] MEDS: QUEtiapine FUMARATE 50 MG TABLET PO SCH (21:41)
[2018-03-10] MEDS: CYCLOBENZAPRINE HCL 10 MG TABLET (FP) PO PRN (21:41)
[2018-03-11] MEDS: ESCITALOPRAM OXALATE 10 MG TABLET (FP) PO SCH (09:31)
[2018-03-11] MEDS: NICOTINE 21 MG/24 HOURS TOPICAL PATCH TD SCH (09:31)
[2018-03-11] MEDS: PRENATAL VITAMINS W/ FOLIC ACID TABLET (FP) PO SCH (09:31)
[2018-03-11] MEDS: CYCLOBENZAPRINE HCL 10 MG TABLET (FP) PO PRN ×2 (09:32→21:23)
[2018-03-11] MEDS: hydrOXYzine PAMOATE 50 MG CAPSULE (FP) PO PRN ×2 (09:32→21:24)
[2018-03-11] MEDS: NICOTINE POLACRILEX 4 MG GUM BUC PRN ×2 (12:55→17:42)
[2018-03-11] MEDS: QUEtiapine FUMARATE 50 MG TABLET PO SCH (21:23)
[2018-03-11] MEDS: THIAMINE HCL 100 MG TABLET (FP) PO SCH (21:23)
[2018-03-12] MEDS: NICOTINE 21 MG/24 HOURS TOPICAL PATCH TD SCH (09:34)
[2018-03-12] MEDS: PRENATAL VITAMINS W/ FOLIC ACID TABLET (FP) PO SCH (09:34)
[2018-03-12] MEDS: ESCITALOPRAM OXALATE 10 MG TABLET (FP) PO SCH (09:34)
[2018-03-12] MEDS: hydrOXYzine PAMOATE 50 MG CAPSULE (FP) PO PRN (09:35)
[2018-03-12] MEDS: NICOTINE POLACRILEX 4 MG GUM BUC PRN (11:03)
[2018-03-12] MEDS ORDERED: diphenhydrAMINE HCL 25 MG CAPSULE (FP) PO ONE (17:57)
--- NOTE | 2018-03-12 19:19 | PN ---
S Progress Note Note: patient complained of irritation in the throat and itching after eating fish no known of food allergy ambulation ok no shortness of breath itching on body no rash,pharynx no edema,not injected,lung clear,no wheezing benadryl 50 mgs po given then 25 mgs po q 6hrs prn for 3 days close monitoring
[2018-03-12] MEDS: CYCLOBENZAPRINE HCL 10 MG TABLET (FP) PO PRN (21:23)
[2018-03-12] MEDS: QUEtiapine FUMARATE 50 MG TABLET PO SCH (21:23)
[2018-03-12] MEDS: THIAMINE HCL 100 MG TABLET (FP) PO SCH (21:23)
[2018-03-13] MEDS: NICOTINE 21 MG/24 HOURS TOPICAL PATCH TD SCH (09:49)
[2018-03-13] MEDS: PRENATAL VITAMINS W/ FOLIC ACID TABLET (FP) PO SCH (09:50)
[2018-03-13] MEDS: ESCITALOPRAM OXALATE 10 MG TABLET (FP) PO SCH (09:50)
[2018-03-13] MEDS: hydrOXYzine PAMOATE 50 MG CAPSULE (FP) PO PRN ×2 (09:50→21:34)
[2018-03-13] MEDS: IBUPROFEN 400 MG TABLET (FP) PO PRN (12:31)
[2018-03-13] MEDS: NICOTINE POLACRILEX 4 MG GUM BUC PRN ×2 (12:32→15:13)
[2018-03-13] MEDS: diphenhydrAMINE HCL 25 MG CAPSULE (FP) PO PRN (18:48)
[2018-03-13] MEDS: QUEtiapine FUMARATE 50 MG TABLET PO SCH (21:34)
[2018-03-13] MEDS: THIAMINE HCL 100 MG TABLET (FP) PO SCH (21:34)
[2018-03-13] MEDS: CYCLOBENZAPRINE HCL 10 MG TABLET (FP) PO PRN (21:34)
[2018-03-14] MEDS: NICOTINE 21 MG/24 HOURS TOPICAL PATCH TD SCH (09:52)
[2018-03-14] MEDS: hydrOXYzine PAMOATE 50 MG CAPSULE (FP) PO PRN ×2 (09:52→21:49)
[2018-03-14] MEDS: PRENATAL VITAMINS W/ FOLIC ACID TABLET (FP) PO SCH (09:52)
[2018-03-14] MEDS: ESCITALOPRAM OXALATE 10 MG TABLET (FP) PO SCH (09:52)
[2018-03-14] MEDS: NICOTINE POLACRILEX 4 MG GUM BUC PRN (12:31)
[2018-03-14] MEDS: IBUPROFEN 400 MG TABLET (FP) PO PRN (14:48)
[2018-03-14] MEDS: diphenhydrAMINE HCL 25 MG CAPSULE (FP) PO PRN (17:40)
[2018-03-14] MEDS: CYCLOBENZAPRINE HCL 10 MG TABLET (FP) PO PRN (21:49)
[2018-03-14] MEDS: THIAMINE HCL 100 MG TABLET (FP) PO SCH (21:49)
[2018-03-14] MEDS: QUEtiapine FUMARATE 50 MG TABLET PO SCH (21:49)
[2018-03-15 06:45] VITALS: TEMP 97.9
[2018-03-15] MEDS: hydrOXYzine PAMOATE 50 MG CAPSULE (FP) PO PRN ×2 (09:46→21:04)
[2018-03-15] MEDS: ESCITALOPRAM OXALATE 10 MG TABLET (FP) PO SCH (09:46)
[2018-03-15] MEDS: NICOTINE POLACRILEX 4 MG GUM BUC PRN (09:46)
[2018-03-15] MEDS: NICOTINE 21 MG/24 HOURS TOPICAL PATCH TD SCH (09:46)
[2018-03-15] MEDS: PRENATAL VITAMINS W/ FOLIC ACID TABLET (FP) PO SCH (09:46)
[2018-03-15] MEDS: diphenhydrAMINE HCL 25 MG CAPSULE (FP) PO PRN (17:44)
[2018-03-15] MEDS: THIAMINE HCL 100 MG TABLET (FP) PO SCH (21:03)
[2018-03-15] MEDS: QUEtiapine FUMARATE 50 MG TABLET PO SCH (21:03)
[2018-03-15] MEDS: CYCLOBENZAPRINE HCL 10 MG TABLET (FP) PO PRN (21:04)
[2018-03-16] MEDS: ESCITALOPRAM OXALATE 10 MG TABLET (FP) PO SCH (09:42)
[2018-03-16] MEDS: PRENATAL VITAMINS W/ FOLIC ACID TABLET (FP) PO SCH (09:42)
[2018-03-16] MEDS: NICOTINE 21 MG/24 HOURS TOPICAL PATCH TD SCH (09:42)
[2018-03-16] MEDS: NICOTINE POLACRILEX 4 MG GUM BUC PRN (09:43)
[2018-03-16] MEDS: hydrOXYzine PAMOATE 50 MG CAPSULE (FP) PO PRN ×3 (09:43→21:17)
--- NOTE | 2018-03-16 11:24 | PN ---
Psychiatric Progress Note Vital Signs: Vital Signs Period Temp Pulse Resp BP Sys/Pineda Pulse Ox Last 24 Hr 97.9 F 75 16-18 114/81 Date of Session: 03/16/18 Chief Complaint:: Discharge Note HPI: Patient addressing Alcohol Dependencecomorbid with Anxiety Disorder, Alcohol-Induced Anxiety Disorder and Alcohol-Induced Sleep Disorder ROS: Anemia, Cirrhosis of the liver and history of pancreatitis Current Medications: Active Medications Generic Name Dose Route Start Last Admin Trade Name Freq PRN Reason Stop Dose Admin Acetaminophen 650 mg 03/03/18 14:37 Tylenol - PO Q4H PRN FEVER Al Hydroxide/Mg Hydroxide 30 ml 03/03/18 14:37 Mylanta Oral Suspension - PO Q6H PRN DYSPEPSIA Cyclobenzaprine HCl 10 mg 03/08/18 15:48 03/15/18 21:04 Flexeril - PO 10 mg TID PRN Administration MUSCLE SPASMS Escitalopram Oxalate 10 mg 03/04/18 10:00 03/16/18 09:42 Lexapro - PO 10 mg DAILY CHASE Administration Eucalyptus/Menthol/Phenol/Sorbitol 1 each 03/03/18 14:37 Cepastat Lozenge - MM Q4H PRN SORE THROAT Guaifenesin 10 ml 03/03/18 14:37 Robitussin Dm - PO Q6H PRN COUGH Hydroxyzine Pamoate 50 mg 03/12/18 21:31 03/16/18 09:43 Vistaril - PO 50 mg Q6H PRN Administration ANXIETY Ibuprofen 400 mg 03/03/18 14:37 03/14/18 14:48 Motrin - PO 400 mg Q6H PRN Administration Pain Level 4-6 Loperamide HCl 4 mg 03/03/18 14:37 Imodium - PO Q6H PRN DIARRHEA Magnesium Citrate 300 ml 03/03/18 14:37 Citroma - PO Q48H PRN CONSTIPATION Magnesium Hydroxide 30 ml 03/03/18 14:37 Milk Of Magnesia - PO DAILY PRN CONSTIPATION Melatonin 5 mg 03/03/18 22:00 Melatonin PO HS PRN INSOMNIA Nicotine 21 mg 03/04/18 11:30 03/16/18 09:42 Nicoderm Patch - TD 21 mg DAILY CHASE Administration Nicotine Polacrilex 4 mg 03/08/18 10:13 03/16/18 09:43 Nicorette Gum - BUC 4 mg Q2H PRN Administration NICOTINE REPLACEMENT RX Multivit/Folic Acid/Iron 1 tab 03/04/18 10:00 03/16/18 09:42 Vitamins (Sjr) - PO 1 tab DAILY CHASE Administration Pseudoephedrine/Triprolidine 1 combo 03/03/18 14:37 Actifed - PO TID PRN NASAL CONGESTION Quetiapine Fumarate 50 mg 03/03/18 22:00 03/15/18 21:03 Seroquel - PO 50 mg HS CHASE Administration Thiamine HCl 100 mg 03/03/18 22:00 03/15/18 21:03 Vitamin B1 - PO 100 mg HS CHASE Administration Current Side Effect: No Lab tests ordered: Yes Lab tests reviewed: Yes Provider note:: Patient will complete this program on 03/17/18. He has met his treatment goals and will continue to address his issues in retirement residential treatment at [facility]. Told fiction and nonfiction writer prose that from his participation in this program, he has learned a lot of positive reinforcement. He also said that it is the first time he is going to [facility] term program and he is looking forward to it. He responded well to Lexapro 10 mg po daily and Seroquel 50 mg po HS. Scripts for 30 days supply of medications will be electronically transmitted to [facility] at [address] [place] [address]. He is stable for discharge on 03/17/18 Total face to face time:: 35 Mental Status Exam - Mental Status Exam Alert and Oriented to: Time, Place, Person Cognitive Function: Fair Patient Appearance: Well Groomed Mood: Hopeful, Euthymic Affect: Appropriate Patient Behavior: Cooperative Speech Pattern: Clear Voice Loudness: Normal Thought Process: Intact, Goal Oriented Thought Disorder: Not Present Hallucinations: Denies Suicidal Ideation: Denies Homicidal Ideation: Denies Insight/Judgement: Fair Sleep: Fair Appetite: Good Muscle strength/Tone: Normal Gait/Station: Normal Psychiatric Treatment Plan - Problem List (1) Alcohol dependence Current Visit: Yes (2) Anxiety disorder Current Visit: No (3) DEE DEE (generalized anxiety disorder) Current Visit: Yes (4) Alcohol-induced anxiety disorder Current Visit: Yes (5) Alcohol-induced sleep disorder Current Visit: Yes (6) History of pancreatitis Current Visit: No (7) Hepatitis C Current Visit: Yes (8) Anemia Current Visit: Yes (9) Cirrhosis of liver Current Visit: Yes Initial treatment plan: Patient will be discharged tomorrow and referred to [facility] for applied psychology professor residential treatment
[2018-03-16] MEDS: IBUPROFEN 400 MG TABLET (FP) PO PRN (12:31)
[2018-03-16] MEDS: QUEtiapine FUMARATE 50 MG TABLET PO SCH (21:17)
[2018-03-16] MEDS: CYCLOBENZAPRINE HCL 10 MG TABLET (FP) PO PRN (21:17)
[2018-03-16] MEDS: THIAMINE HCL 100 MG TABLET (FP) PO SCH (21:17)
[2018-03-17 06:53] VITALS: BP 124/69; PULSE 67
[2018-03-17] MEDS: NICOTINE 21 MG/24 HOURS TOPICAL PATCH TD SCH (09:07)
[2018-03-17] MEDS: ESCITALOPRAM OXALATE 10 MG TABLET (FP) PO SCH (09:07)
[2018-03-17] MEDS: hydrOXYzine PAMOATE 50 MG CAPSULE (FP) PO PRN (09:07)
[2018-03-17] MEDS: PRENATAL VITAMINS W/ FOLIC ACID TABLET (FP) PO SCH (09:07)
[2018-03-17] MEDS: NICOTINE POLACRILEX 4 MG GUM BUC PRN (09:08)
== END 2018-03-17 09:13 | disposition home or self-care (01) | DRG 772 ==
LOC: YASAS 13:08 → Y3W 13:09
PROVIDERS: ADMIT Psychiatry & Neurology Psychiatry; ATTEND Psychiatry & Neurology Psychiatry
PROC: HZ42ZZZ Group Counseling for Substance Abuse Treatment, Cognitive-Behavioral (ICD-10-PCS; principal; 2018-03-03)
DX: F10.280 Alcohol dependence with alcohol-induced anxiety disorder (principal); F10.282 Alcohol dependence with alcohol-induced sleep disorder; F41.1 Generalized anxiety disorder; F41.9 Anxiety disorder, unspecified; B18.2 Chronic viral hepatitis C; D64.9 Anemia, unspecified; K74.60 Unspecified cirrhosis of liver; J06.9 Acute upper respiratory infection, unspecified